=== PATIENT | male | born 1975 | race Caucasian/White ===

== ENCOUNTER 2024-10-20 18:00 | Inpatient (IN) | payer BC, SELFPAY ==
[2024-10-20] VITALS (32 sets, daily range): BP systolic 133–184; BP diastolic 79–162; PULSE 121–143; RESP 13–31; TEMP 36.7–37.9; O2SAT 93–99; BMI 51.3
--- NOTE | ~2024-10-20 | CT_ITS ---
CT soft tissue neck w con Ordering provider: Marito Odell MD History: 49 years Male with . sore throat . Comparison: None. Technique: CT soft tissues neck was performed with contrast. . Automated exposure control and iterat hardy reconstruction technique were employed. The dose-length product was 675.00 mGy-cm. 75 mL Omnipaqu e 350 was given IV. Findings: LOWER HEAD: The visualized brain parenchyma, optic globes/orbits and mastoids are normal. Bilateral maxillary sinus disease. Otherwise, The visualized paranasal sinuses are well aerated. SALIVARY GLANDS: Normal. THYROID: Normal. SUPRAHYOID DEEP SPACES: Parapharyngeal lymph nodes are seen with the largest on the right side measur es 1.3 cm and on the left 1.6 cm. Small lymph nodes are seen in superior triangles. CAROTID ARTERIES: Atherosclerotic changes on the left with no stenosis. JUGULAR VEINS: Normal. TONSILS: Normal. ORAL CAVITY: Partially obscured by dental amalgam but normal as visualized. PHARYNX, LARYNX AND TRACHEA: Slightly prominent epiglottis. Patent and normal. No prevertebral soft t issue swelling. Soft tissue swelling is seen inferior to the epiglottis most likely in the proximal esophagus measuri ng 2.4 cm.. Laryngoscopy/esophagoscopy is advised. SUPERFICIAL SOFT TISSUES: Normal. No lymphadenopathy or neck mass. THORACIC INLET/VISUALIZED UPPER CHEST: Normal. SKELETAL: Age appropriate degenerative changes. IMPRESSION: 1. Slightly prominent epiglottis. Inflammatory changes are possible. 2. Lymphadenopathy in the parapharyngeal areas. 3. Soft tissue swelling in the area of the proximal esophagus. Further evaluation advised. 4. No definite enhancement seen in the area of the tonsils Reviewed, dictated and finalized at location A. IMPRESSION: 1. Slightly prominent epiglottis. Inflammatory changes are possible. 2. Lymphadenopathy in the parapharyngeal areas. 3. Soft tissue swelling in the area of the proximal esophagus. Further evaluat ion advised. 4. No definite enhancement seen in the area of the tonsils
--- NOTE | ~2024-10-20 | XR_ITS ---
XR chest 1V portable Ordering provider: Natalie Cheney PA-C History: 49 years Male with . sob . Comparison: None. FINDINGS: MEDIASTINUM: The cardiac silhouette is not enlarged. LUNGS: No infiltrates, effusions or pneumothorax. OTHER: No free air under the diaphragm. Degenerative changes of the spine. IMPRESSION: No acute cardiopulmonary pathology. Reviewed, dictated and finalized at location A.
--- OUTSIDE RECORDS SUMMARY | 2024-10-20 18:03 | XMS_ITS | Continuity of Care Document ---
Author Organization [facility] Address [address] [place] [address] Phone Care Team Providers Care Motorboat Operator Name Role Phone Tessa Hector Unavailable Unavailab le Allergies, Adverse Reactions, Alerts Substance Reaction Status Criticality No Known Allergies Active No Inform ation Medications Medication Instructions Dosage Effective Dates (start - stop) Status Comments No Drug Therapy Prescribed Procedures Procedure Date POSTOP FOLLOW-UP VISIT OFFICE/OUTPATIENT VISIT EST POSTOP FOLLOW-UP VISIT OFFICE/OUTPATIENT VISIT EST POSTOP FOLLOW-UP VISIT POSTOP FOLLOW-UP VISIT RADEX KNE 3 VIEWS OFFICE/OUTPATIENT VISIT EST POSTOP FOLLOW-UP VISIT POSTOP FOLLOW-UP VISIT POSTOP FOLLOW-UP VISIT OFFICE/OUTPATIENT VISIT EST OFFICE/OUTPATIENT VISIT EST RADEX KNE 3 VIEWS OFFICE/OUTPATIENT VISIT NEW Advance Directives Directive Yes / No Effective Date File Name No Information Encounters Encounter Description Practice Location Reason(s) For Visit Diagnoses Date Provider Providers Copied on Encounter [facility], [address], [place], [address], tel:[phone] [facility] Osteoarthritis of left knee, unspecified osteoarthritis type 0 Lori Zarate. [address], [place], [place], [id number]. tel:[phone] OFFICE/OUTPA TIENT VISIT EST [facility], [address], [place], [address], [place] tel:[phone] [facility] Osteoarthritis of left knee, unspecified osteoarthritis type Fe-0 0 Boxdorfer Tessa. [address] [address], [place], [place], [id number]. tel:[phone] [facility], [address] [address], [place], [address], [place] tel:[phone] [facility] Osteoarthritis of left knee, unspecified osteoarthritis type Apr- 0 Boxdorfer Tessa. [address] [address], [place], [place], [id number]. tel:[phone] OFFICE/OUTPA TIENT VISIT EST [facility], [address], [address], [place] tel:[phone] [facility] Osteoarthritis of left knee, unspecified osteoarthritis type 0 Boxdorfer Tessa. [address], [id number]. tel:[phone] [facility], [address] [address], [place], [address], [place] tel:[phone] [facility] Osteoarthritis of right knee, unspecified osteoarthritis type 9 Boxdorfer Tessa. [address], [id number]. tel:[phone] [facility], [address], [address], [place] tel:[phone] [facility] Osteoarthritis of right knee, unspecified osteoarthritis type 0 9 Boxdorfer Tessa. [address], [id number]. tel:[phone] OFFICE/OUTPA TIENT VISIT EST [facility], [address], [address], [place] tel:[phone] [facility] Left knee pain, unspecified chronicityPrimar y osteoarthritis of left kneeOsteoarthrit is of right knee, unspecified osteoarthritis type 0 9 Boxdorfer Tessa. [address] [facility] [address] [address], [place], [place], [id number]. tel:[phone] [facility], [address], [place], [address], [place] tel:[phone] [facility] Osteoarthritis of right knee, unspecified osteoarthritis type Feb- 9 [place] [address], [place], [place], [id number]. tel:[phone] [facility], [address] [address], [place], [address], [place] tel:[phone] [facility] Osteoarthritis of right knee, unspecified osteoarthritis type 8 Sigmund Ed. [address], [place], [place], [id number]. tel:[phone] [facility], [address] [address], [place], [address], [place] tel:[phone] [facility] Osteoarthritis of right knee, unspecified osteoarthritis type 0 8 Boxdor[address] Tessa. [address], [place], [place], [address]. tel:[phone] [facility], [address] [address], [place], [address], [place] tel:[phone] [facility] Osteoarthritis of right knee, unspecified osteoarthritis type 8 Sigmund Ed. [address], [place], [place], [address]. tel:[phone] OFFICE/OUTPA TIENT VISIT EST [facility], [address], [place], [address], [place] tel:[phone] [facility] Internal derangement of right kneeOsteoarthrit is of right knee, unspecified osteoarthritis type 8 Sigmund [address]. [address], [place], [place], [id number]. tel:[phone] OFFICE/OUTPA TIENT VISIT EST [facility], [address], [place], [address], [place] tel:[phone] [facility] Internal derangement of right knee 8 Louisa Ward. [address], [place], [place], [address]. tel:[phone] OFFICE/OUTPA TIENT VISIT NEW [facility], [address], [place], [address], [place] tel:[phone] [facility] Right knee pain, unspecified chronicityBody mass index (BMI) 40.0-44.9, adultOsteoarthri tis of right knee, unspecified osteoarthritis type 8 Rocklexielori Zarate. [address] [facility] [address], [place], [place], [address]. tel:[phone] Family History Family Member Type Diagnosis Age At Onset aunt Problem (finding) Heart disease mom Problem (finding) Cancer, liver pancreati c dad & mom Problem (finding) hypertension Payers Payer name Insurance type Covered libertarian ID Authoriza tikimberly(s) Blue Access PPO E2 OT [id number] Social History Type Description Quantity Date Captured Comments Alcohol Use Details No Caffeine Use Details >6 cups per day 0 Tobacco Use Status Never smoked tobacco 2019 Smoking Status Never smoker Sex Male Chief Complaint And Reason For Visit No Information Reason For Referral Reason For Referral No Information Plan Of Treatment Date Type Action Status Referral Ordered: INJECTION LT knee ordered Referral Ordered: RADEX KNE 3 VIEWS LT ordered Referral Ordered: INJECTION RT knee ordered Referral Ordered: MRI ANY JT LXTR C-MATRL RT knee Appointment date/timeframe: 09/20/2017 ordered Referral Ordered: RADEX KNE 3 VIEWS RT knee ordered History Of Present Illness Encounter Date Complaint History Of Prese nt Illness No Information Functional Status Date Functional Assessmen t No Information Medications Administered Medication Instructions Dosage Effective Dates (start - stop) Status Comments No Drug Therapy Prescribed Instructions Date Instruction Additional Infor amalia Home exercise program. Related t o Osteoarthritis of left knee, unspecified osteoarthritis type Apply moist heat or cold 20 min per hour. Related to Osteoarthritis of left knee, unspecified osteoarthritis type Home exercise program. Related t o Osteoarthritis of right knee, unspecified osteoarthritis type Apply moist heat or cold 20 min per hour. Related to Osteoarthritis of right knee, unspecified osteoarthritis type Home exercise program. Related t o Osteoarthritis of right knee, unspecified osteoarthritis type Weight loss reduces stress on joints. Related to Osteoarthritis of right knee, unspecified osteoarthritis type Rest, ice and elevate. Related t o Internal derangement of right knee Discussed treatment options Rela cristian to Internal derangement of right knee Weight loss reduces stress on joints. Related to Osteoarthritis of right knee, unspecified osteoarthritis type Home exercise program. Related t o Right knee pain, unspecified chronicity Giving encouragement to exercise Related to Body mass index (BMI) 40.0-44.9, adult Take medication as directed. Rel ated to Right knee pain, unspecified chronicity Home exercise program. Related t o Osteoarthritis of right knee, unspecified osteoarthritis type Assessments Type Assessment Date assessment Osteoarthritis of left knee, uns pecified osteoarthritis type Patient Care Teams Name Effective Dates (start - stop) Status Members No Information
--- OUTSIDE RECORDS SUMMARY | 2024-10-20 18:03 | XMS_ITS | Clinical Summary ---
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 Gender Identity Not on file Sexual Orientation Not on file Obstetrics History Plan of Treatment Health Maintenance Due Date Last Done Comments Colon Cancer Screening-Colonoscopy 1976 Depression Screening 1976 Hepatitis C Screening 1976 DTaP/Tdap/Td Vaccine (1 - Tdap) 09/25/1987 Hepatitis B Screening 1994 Regular Well Visit/Exam 18-64 1994 Covid-19 Vaccine (2023-2 5 season) 2023 11/15/2021, 08/11/2020, 07/21/2020 Influenza Vaccine (#1) 2024 Pneumococcal vaccine <65 Aged Out No longer eligible based on patient's age to complete this topic Insurance [facility] Care Teams Assembly Line Upholsterer Relationship Specialty Start Date End Date No, Physician PCP - General 10/15/23
--- OUTSIDE RECORDS SUMMARY | 2024-10-20 18:03 | XMS_ITS | Referral Summary ---
Author Organization [facility] Address [address] [place] [id number] Care Team Providers Care Ferruler Name Role Phone No, Physician Primary Care Provider [phone] Allergies No known active allergies Medications No known medications Active Problems No known active problems Social History Tobacco Use Types Packs/Day Years Used Date Smoking Tobacco: Never Assessed Sex and Gender Information Value Date Recorded Sex Assigned at Not on file Legal Sex Male 3:32 AM KENNEL HAND Gender Identity Not on file Sexual Orientation Not on file Plan of Treatment Not on file Insurance [facility] Care Teams Ferruler Relationship Specialty Start Date End Date No, Physician PCP - General 10/15/23
--- OUTSIDE RECORDS SUMMARY | 2024-10-20 18:03 | XMS_ITS | Encounter Summary ---
Author Organization [facility] Address [address] [place] [address] Care Team Providers Care Dyer Helper Name Role Phone Sharon Torres MD Primary Care Provider + Encounter Details Date Type Department Care Team (Late Contact Info) Description 03/09/2024 [facility] [employer] Message Enc [address] [address] [place], [facility] Provider sleep study Social History Tobacco Use Types Packs/Day Years Used Date Smoking Tobacco: Former Cigarettes 0.5 5 Q uit: 09/13/2009 Pipe Passive Smoke Exposure: Past Smokeless Tobacco: Former Chew Quit: 2000 Alcohol Use Standard Drinks/Week Comments Yes 8.3 (1 standard drink = 0.6 oz p ure alcohol) occ PHQ-2 Answer Date Recorded Patient Health Questionnaire-2 Score 0 01/21/2024 Sex and Gender Information Value Date Recorded Sex Assigned at Not on file Legal Sex Male 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 Gender Identity Not on file Sexual Orientation Not on file Occupation Industry 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 [employer] Not on file Not on file Not on file documented as of this encounter Plan of Treatment Upcoming Encounters Date Type Department Care Team (Late Contact Info) Description 10/21/2024 9:00 AM CDT Office Visit [facility] [address] [place] [address] [place] [phone] Sveta Servin NP [address] [place] [address] 02/04/2025 9:30 AM CDT Office Visit [facility] [place] [address] [place] [phone] Sharon Torres MD [address] [place] [phone] documented as of this encounter Visit Diagnoses Not on filedocumented in this encounter Care Teams Dyer Helper Relationship Specialty Start Date End Date Sharon Torres MD [address] [facility] [address] [place] [phone] PCP - General FAMILY PRACTICE 01/21/24 documented as of this encounter
--- OUTSIDE RECORDS SUMMARY | 2024-10-20 18:03 | XMS_ITS | Clinical Summary ---
Author Organization [facility] Address [address] [place] [address] Care Team Providers Care Recruiting Consultant Name Role Phone Unavailable Primary Care Provider Unavailabl e Allergies No known active allergies Medications hydroCHLOROthia zide 25 mg tablet Take 25 mg by mouth daily. Active metoprolol succinate (TOPROL XL) 25 mg Extended Release 24 hour tablet Take 25 mg by mouth daily. Active lisinopriL (PRINIVIL) 40 mg tablet Take 40 mg by mouth daily. Active metFORMIN (GLUCOPHAGE XR) 500 mg Extended Release 24 hour tablet Take 3 Tablets (1,500 mg) by mouth daily before supper. 270 Tablet 5 Active naltrexone (DEPADE) 50 mg tablet SI/4 tab po qd for one week then increase to 1/2 tab po qd for one week then 1/2 tab po bid if tolerating 30 Tablet 5 Active Active Problems No known active problems Encounters Date Type Department Care Team Description 2024 10:00 AM CDT Office Visit [facility] at the [facility] [address] [place] [address] Morbid obesity with BMI of 50.0-59.9, adult (CMS/HCC) (Primary Dx) 09/23/2024 Orders Only [facility] - [address] [address] Nikkie Mckeon A Class 3 severe obesity due to excess calories with serious comorbidity and body mass index (BMI) of 50.0 to 59.9 in adult; Medication monitoring encounter; Essential hypertension 09/22/2024 8:00 AM CDT Video Visit [facility] - [address], [address] [address] Genny Agosto MD Essential hypertension (Primary Dx); Class 3 obesity; Vitamin D deficiency; BMI 45.0-49.9, adult ([facility]/HCC); Medication management 09/03/2024 External Device Data [facility] ABSTRACTION Provider, Abstract 09/02/2024 External Device Data [facility] AB[facility]CTION Provider, Abstract 09/02/2024 External Device Data [facility]STRACTION Provider, Abstract 08/24/2024 8:00 AM CDT Video Visit [facility] - [address], [address] [address] Genny Agosto MD Essential hypertension (Primary Dx); Class 3 obesity; BMI 50.0-59.9, adult ([facility]); Insulin resistance; Vitamin D deficiency; Elevated ALT measurement 08/19/2024 Abstract [facility] at the [facility] Medicine [address] [place] [address] RD [address] [place] [address] Akosua Segura, RN 08/14/2024 Abstract [facility] Surgery at the [facility] [address] [place] [address] Akosua Segura, RN 08/13/2024 10:00 AM CDT Office Visit [facility] General Surgery at the [facility] Medicine [address] [place] [address] RD [address] [place] [address] Aurelia Pena, ALEXANDER Morbid obesity with BMI of 50.0-59.9, adult ([facility]) (Primary Dx) 07/28/2024 External Device Data [facility] ABSTRACTION Provider, Abstract 07/28/2024 External Device Data [facility] ABSTRACTION Provider, Abstract 07/28/2024 External Device Data [facility] ABSTRACTION Provider, Abstract 07/27/2024 8:30 AM CDT Video Visit [facility] - [address], [address] [address] Genny Agosto MD Essential hypertension (Primary Dx); Class 3 severe obesity due to excess calories with serious comorbidity and body mass index (BMI) of 50.0 to 59.9 in adult; Medication monitoring encounter 07/23/2024 Telephone [facility] - [address], [address] [address] Genny Agosto MD Needs Appointment 07/22/2024 10:15 AM CDT Office Visit [facility] Surgery at the [facility] Medicine [address] [place] [address] [address] [place] [address] Sharon Streeter MD Morbid obesity with BMI of 50.0-59.9, adult (CMS/[facility]) (Primary Dx); Gastroesophageal reflux disease, unspecified whether esophagitis present; HTN (hypertension), benign 07/22/2024 Abstract [facility] Surgery at the [address] [place] [address] Sarita aFy RN 07/22/2024 Orders Only [facility] Surgery at the [address] [place] [address] Sarita Fay RN Morbid obesity with BMI of 50.0-59.9, adult (CMS/HCC) (Primary Dx) from Last 3 Months Family History Medical History Relation Name Comments Cancer Father Hieu siu Heart Disease Father Hieu siu Diabetes Mother Daija siu Relation Name Status Comments Father Hieu siu Alive Mother Daija siu Alive Social History Tobacco Use Types Packs/Day Years Used Date Smoking Tobacco: Former Cigarettes 0.5 10 Q uit: 08/23/2011 Pipe Tobacco Cessation:Counseling Given: Not Answered Alcohol Use Standard Drinks/Week Comments Yes 2 (1 standard drink = 0.6 oz pur e alcohol) Sex and Gender Information Value Date Recorded Sex Assigned at Not on file Legal Sex Male 10:55 PM CDT Gender Identity Not on file Sexual Orientation Not on file Last Filed Vital Signs Vital Sign Reading Time Taken Comments Blood Pressure 152/88 07/22/2024 9:47 AM CDT Pulse 81 07/22/2024 9:47 AM CDT Temperature - - Respiratory Rate - - Oxygen Saturation 95% 07/22/2024 9:47 AM CDT Inhaled Oxygen Concentration - - Weight 189.6 kg (418 lb) 2024 9:47 AM CDT Height 193 cm (6' 4) 09/22/2024 7:56 AM CDT Body Mass Index 50.88 09/22/2024 7:56 AM CDT Plan of Treatment Upcoming Encounters Date Type Department Care Team (Late st Contact Info) Description 10/22/2024 9:00 AM CDT Video Visit [facility] - [facility] [address] [facility], [address] [address] [place] [address] [place] [address] 11/05/2024 10:00 AM CDT Office Visit [facility] General Surgery at the [facility] Medicine [address] [place] [address] Aurelia Pena, RD [address] [place] [address] Health Maintenance Due Date Last Done Comments HEPATITIS B VACCINES (1 of 3 - 19+ 3-dose series) 09/13 COLORECTAL SCREENING 2021 Colorectal Cancer Screening 2021 FIT-DNA Q 3 years 2021 FIT/FOBT Q 1 year 2021 Flex Sig/CT Colonography Q 5 years 2021 INFLUENZA VACCINE (#1) 2024 Pre-Diabetes and Diabetes Screening 09/24/202709/23 DTAP/TDAP/TD VACCINES (2 - Td or Tdap) 01/20/2034 Procedures Procedure Name Priority Date/Time Associated Diagnosis Comments COMPREHENSIVE METABOLIC PANEL Routine 09/23/2024 8:04 AM CDT Essential hypertension Class 3 severe obesity due to excess calories with serious comorbidity and body mass index (BMI) of 50.0 to 59.9 in adult HEMOGLOBIN A1C Routine 09/23/2024 8:04 AM CDT Class 3 severe obesity due to excess calories with serious comorbidity and body mass index (BMI) of 50.0 to 59.9 in adult INSULIN LEVEL Routine 09/23/2024 8:04 AM CDT Class 3 severe obesity due to excess calories with serious comorbidity and body mass index (BMI) of 50.0 to 59.9 in adult VITAMIN D 25 HYDROXY Routine 09/23/2024 8:04 AM CDT Class 3 severe obesity due to excess calories with serious comorbidity and body mass index (BMI) of 50.0 to 59.9 in adult TSH REFLEXIVE Routine 09/23/2024 8:04 AM CDT Essential hypertension Class 3 severe obesity due to excess calories with serious comorbidity and body mass index (BMI) of 50.0 to 59.9 in adult CBC WITH DIFFERENTIAL Routine 09/23/2024 8:04 AM CDT Essential hypertension Class 3 severe obesity due to excess calories with serious comorbidity and body mass index (BMI) of 50.0 to 59.9 in adult VITAMIN B12 AND FOLATE Routine 8:04 AM CDT Class 3 severe obesity due to excess calories with serious comorbidity and body mass index (BMI) of 50.0 to 59.9 in adult Medication monitoring encounter VITAMIN B1 LEVEL Routine 09/23/2024 8:04 AM CDT Class 3 severe obesity due to excess calories with serious comorbidity and body mass index (BMI) of 50.0 to 59.9 in adult IRON, TIBC, AND PERCENT SATURATION Routine 09/23/2024 8:04 AM CDT Class 3 severe obesity due to excess calories with serious comorbidity and body mass index (BMI) of 50.0 to 59.9 in adult from Last 3 Months Results * COMPREHENSIVE METABOLIC PANEL (09/23/2024 8:04 AM CDT) Blood 09/23/2024 8:04 AM CDT us Genny Agosto MD CHEMISTRY ORDERABLES Final Resu lt [facility] [phone] * HEMOGLOBIN A1C (09/23/2024 8:04 AM CDT) Blood 09/23/2024 8:04 AM CDT Genny Agosto MD CHEMISTRY ORDERABLES Final Resu lt Performing Organization Address [facility] Co de Phone Number [facility] [phone] * INSULIN LEVEL (09/23/2024 8:04 AM CDT) Blood 09/23/2024 8:04 AM CDT us Genny Agosto MD CHEMISTRY ORDERABLES Final Resu lt Performing Organization Address [facility] de Phone Number [facility] [phone] * VITAMIN D 25 HYDROXY (09/23/2024 8:04 AM CDT) Blood 09/23/2024 8:04 AM CDT Genny Agosto MD CHEMISTRY ORDERABLES Final Resu lt Performing Organization Address [facility] Co de Phone Number [facility] [phone] * TSH REFLEXIVE (09/23/2024 8:04 AM CDT) Blood 09/23/2024 8:04 AM CDT Genny Agosto MD CHEMISTRY ORDERABLES Final Resu lt Performing Organization Address [facility] Co de Phone Number [facility] [phone] * CBC WITH DIFFERENTIAL (09/23/2024 8:04 AM CDT) Blood 09/23/2024 8:04 AM CDT Genny Agosto MD HEMATOLOGY ORDERABLES Final Res ult Performing Organization Address [facility] Co de Phone Number [facility] [phone] * VITAMIN B12 AND FOLATE (09/23/2024 8:04 AM CDT) Blood 09/23/2024 8:04 AM CDT us Genny Agosto MD CHEMISTRY ORDERABLES Final Resu lt Performing Organization Address [facility]/ZIP Co de Phone Number [facility] [phone] * VITAMIN B1 LEVEL (09/23/2024 8:04 AM CDT) Blood 09/23/2024 8:04 AM CDT us Genny Agosto MD CHEMISTRY ORDERABLES Final Resu lt Performing Organization Address [facility] Co de Phone Number [facility] [phone] * IRON, TIBC, AND PERCENT SATURATION (09/23/2024 8:04 AM CDT) Blood 09/23/2024 8:04 AM CDT us Genny Agosto MD CHEMISTRY ORDERABLES Final Resu lt Performing Organization Address [facility] Co de Phone Number [facility] [phone] from Last 3 Months Insurance BS BLUE ACCESS/TRUE BLUE PPO
--- OUTSIDE RECORDS SUMMARY | 2024-10-20 18:03 | XMS_ITS | Clinical Summary ---
Author Organization [facility] Address [address] [place] [address] Care Team Providers Care Yoga Instructor Name Role Phone Sharon Torres MD Primary Care Provider + Allergies No known active allergies Medications lisinopril (PRINIVIL) 40 MG tabletIndication s:Essential hypertension Take 20 mg for two days, then take 40 mg daily. 90 tablet 3 4 Active Additional Information Patient taking differently: 40 mg Oral Daily, (No instructions reported), Reported on 02/05/2024 hydroCHLOROthiaz minda (HYDRODIURIL) 25 MG tabletIndication s:Essential hypertension Take 1 tablet (25 mg total) by mouth every morning. 90 tablet 3 4 Active tirzepatide (ZEPBOUND) 2.5 MG/0.5ML injectionIndicat ions:Weight Loss Inject 2.5 mg into the skin once a week. Indications: Weight Loss 6 mL 4 Active metoprolol succinate ER (TOPROL-XL) 25 MG 24 hr tabletIndication s:Essential hypertension Take 1 tablet (25 mg total) by mouth daily. 90 tablet 3 4 025 Active Active Problems Problem Noted Date Diagnosed Date Lymphedema 01/21/2024 Morbid obesity 01/21/2024 Overview (02/05/2024): Patient request the option of GLP-1. No history of pancreatitis no family history of thyroid cancers. Assessment & Plan (02/05/2024 9:31 AM CDT): Discussed risks and benefits of GLP-1. He is interested in trying Zepbound. He is open to paying [id number] if needed. Prescription provided and recommended 1 to 2-month follow-up if he begins taking medication. Assessment & Plan (01/21/2024 9:16 AM CDT): Discussed lifestyle changes. Essential hypertension 09/17/1994 Overview (02/05/2024): Started lisinopril 20 mg and increase to 40 mg. Also added hydrochlorothiazide. Reports blood pressure readings at home are 140s-150s systolic. Notes edema is improved. Assessment & Plan (02/05/2024 9:30 AM CDT): Not yet controlled. Continue lisinopril 40 mg daily and hydrochlorothiazide. Add metoprolol 25 mg daily. Request nurse visit in 2 weeks to confirm readings are at goal or adjust based on pulse. Assessment & Plan (01/21/2024 9:16 AM CDT): Not controlled. Chronic. Will initiate lisinopril 20 mg daily x 2 days then increase to 40 mg daily. Recommend after 1 week adding hydrochlorothiazide 25 mg daily. Recommend he monitor blood pressures at home regularly and return in 2 weeks for discussion on blood pressure management. Immunizations Immunization Administration Dates Next Due Tdap (Adacel) 01/21/2024 Family History Medical History Relation Comments No Known Problems Brother 1 No Known Problems Brother 2 Cancer Father Salavitory gland cancer Hypertension Father Cancer Mother Pancreatic cance r Diabetes Mother No Known Problems Sister 1 No Known Problems Sister 2 No Known Problems Sister 3 No Known Problems Sister 4 Relation Status Comments Brother 1 Alive Brother 2 Alive Father Mother Sister 1 Alive Sister 2 Alive Sister 3 Alive Sister 4 Alive Social History Tobacco Use Types Packs/Day Years Used Date Smoking Tobacco: Former Cigarettes 0.5 5 Q uit: 09/13/2009 Pipe Passive Smoke Exposure: Past Smokeless Tobacco: Former Chew Quit: 2000 Tobacco Cessation:Counseling Given: No Alcohol Use Standard Drinks/Week Comments Yes 8.3 (1 standard drink = 0.6 oz p ure alcohol) occ PHQ-2 Answer Date Recorded Patient Health Questionnaire-2 Score 0 01/21/2024 Sex and Gender Information Value Date Recorded Sex Assigned at Not on file Legal Sex Male 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 Gender Identity Not on file Sexual Orientation Not on file Occupation Industry 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 [employer] Not on file Not on file Not on file Last Filed Vital Signs Vital Sign Reading Time Taken Comments Blood Pressure 128/82 02/19/2024 8:54 AM STRATEGIC PARTNER DEVELOPMENT MANAGER Pulse 72 02/19/2024 8:54 AM STRATEGIC PARTNER DEVELOPMENT MANAGER Temperature 36.7 C (98.1 F) 02/19/2024 8:54 AM STRATEGIC PARTNER DEVELOPMENT MANAGER Respiratory Rate 20 02/19/2024 8:54 AM STRATEGIC PARTNER DEVELOPMENT MANAGER Oxygen Saturation 98% 02/19/2024 8:54 AM STRATEGIC PARTNER DEVELOPMENT MANAGER Inhaled Oxygen Concentration - - Weight 190.1 kg (419 lb) 02/05/2024 8:59 AM CDT Height 191.8 cm (6' 3.5) 02/05/2024 8:59 AM CDT Body Mass Index 51.68 02/05/2024 8:59 AM CDT Plan of Treatment Upcoming Encounters Date Type Department Care Team (Late st Contact Info) Description 10/21/2024 9:00 AM CDT Office Visit [facility] [address] [place] [address] Sveta Servin NP [address] [place] [address] 02/04/2025 9:30 AM CDT Office Visit [facility] [address] [place] [address] Sharon Torres MD [address] [place] [address] Health Maintenance Due Date Last Done Comments Hepatitis B Vaccines (1 of 3 - 19+ 3-dose series) 09/25/1995 COVID-19 Vaccine (2023-2 5 season) 2023 11/15/2021, 08/11/2020, 07/21/2020 PHQ-2 (Physician Seibert) 04/15/2024 01/21/2024 Annual Physical 01/20/2025 01/21/2024 Colorectal Cancer Screening FIT-DNA (3 Years) 01/27/2027 01/28/2024, 01/28/2024 DTaP, Tdap and Td Vaccines ( 2 - Td or Tdap) 01/20/2034 01/21/2024 Hepatitis C Completed 01/21/2024 Meningococcal B Vaccine Aged Out No l onger eligible based on patient's age to complete this topic Meningococcal Vaccine Aged Out No landen nano eligible based on patient's age to complete this topic Pneumococcal Vaccine: Pediatrics (0 to 5 Years) and At-Risk Patients (6 to 49 Years) Aged Out No longer eligible b ased on patient's age to complete this topic RSV Immunizations Under 20 Months Aged Out No longer eligible b ased on patient's age to complete this topic Procedures Procedure Name Priority Date/Time Associated Diagnosis Comments COLOGUARD (EXACT SCIENCE) Routine 01/28/2024 8:45 AM CDT Colon cancer screening HEPATITIS C ANTIBODY W/RFX TO HCV RNA Routine 01/21/2024 9:20 AM CDT Routine general medical examination at a health care facility from Last 3 Months or Most Recently Relevant to Health Maintenance Results * COLOGUARD (EXACT SCIENCE) (01/28/2024 8:45 AM CDT) COLOGUARD RESULT Negative Negative [facility] (CLIA #:[id number]) Comment: NEGATIVE TEST RESULT. A negative Cologuard result indicates a low likelihood that a colorectal cancer (CRC) or advanced adenoma (adenomatous polyps with more advanced pre-malignant features) is present. The chance that a person with a negative Cologuard test has a colorectal cancer is less than 1 in 1500 (negative predictive value >99.9%) or has an advanced adenoma is less than 5.3% (negative predictive value 94.7%). These data are based on a prospective cross-sectional study of 10,000 individuals at average risk for colorectal cancer who were screened with both Cologuard and colonoscopy. (Megan Morel al, N Engl J Med 2014;370(14):3481-7448) The normal value (reference range) for this assay is negative. COLOGUARD RE-SCREENING RECOMMENDATION: Periodic colorectal cancer screening is an important part of preventive healthcare for asymptomatic individuals at average risk for colorectal cancer. Following a negative Cologuard result, the [place] Cancer Society and U.S. Multi-Society Task Force screening guidelines recommend a Cologuard re-screening interval of 3 years. References: [place] Cancer Society Guideline for Colorectal Cancer Screening: https://www.cancer.org/cancer/oiapp-ykltkx-unxzud/uhtbprchz-wsqksfrxb-khlmlff/ac s-rec ommendations.html.; Wang DK, Ifeanyi CR, Moe CarmonaK, Colorectal Cancer Screening: Recommendations for Physicians and Patients from the U.S. Multi-Society Task Force on Colorectal Cancer Screening , Am J Gastroenterology 2017; 112:7370-7132. TEST DESCRIPTION: Composite algorithmic analysis of stool DNA-biomarkers with hemoglobin immunoassay. Quantitative values of individual biomarkers are not reportable and are not associated with individual biomarker result reference ranges. Cologuard is intended for colorectal cancer screening of adults of either sex, 45 years or older, who are at average-risk for colorectal cancer (CRC). Cologuard has been approved for use by the U.S. FDA. The performance of Cologuard was established in a cross sectional study of average-risk adults aged 50-84. Cologuard performance in patients ages 45 to 49 years was estimated by sub-group analysis of near-age groups. Colonoscopies performed for a positive result may find as the most clinically significant lesion: colorectal cancer [4.0%], advanced adenoma (including sessile serrated polyps greater than or equal to 1cm diameter) [20%] or non- advanced adenoma [31%]; or no colorectal neoplasia [45%]. These estimates are derived from a prospective cross-sectional screening study of 10,000 individuals at average risk for colorectal cancer who were screened with both Cologuard and colonoscopy. (Megan Morel al, N Engl J Med 2014;370(14):5720-7817.) Cologuard may produce a false negative or false positive result (no colorectal cancer or precancerous polyp present at colonoscopy follow up). A negative Cologuard test result does not guarantee the absence of CRC or advanced adenoma (pre-cancer). The current Cologuard screening interval is every 3 years. ([place] Cancer Society and U.S. Multi-Society Task Force). Cologuard performance data in a 10,000 patient pivotal study using colonoscopy as the reference method can be accessed at the following location: www.[employer]be[employer].com/results. Additional description of the Cologuard test process, warnings and precautions can be found at www.cologuard.com. STOOL STOOL SPECIMEN / Unknown 01/28/2024 8:45 AM CDT 01/29/2024 9:53 AM CDT us Sharon Torres MD BODY FLUIDS AND STOOLS O RDERABLES Final Result Performing Organization Address [facility] de Phone Number [employer] ([employer] [address]) [address] [place] [address], [employer] (CLIA #:[id number]) [address] [place] [address] * HEPATITIS C ANTIBODY W/RFX TO HCV RNA (01/21/2024 9:20 AM CDT) HEPATITIS C AB Non Reactive Non Reacti [facility] INTERPRETATION Comment [facility] 1 Comment: Not infected with HCV unless early or acute infection is suspected (which may be delayed in an immunocompromised individual), or other evidence exists to indicate HCV infection. 01/21/2024 9:20 AM CDT 01/21/2024 Narrative [facility] - 01/22/2024 5:07 AM CDT Performed at: 01 - [facility] [address] [id number] Tobacco Sweeper: Errol Singleton PhD, Phone: [phone] us Sharon Torres MD LABORATORY Final Re sult Performing Organization Address [facility] Co de Phone Number [facility] [address] [place] [address] [facility] 1 from Last 3 Months or Most Recently Relevant to Health Maintenance Insurance [facility] Care Teams Yoga Instructor Relationship Specialty Start Date End Date Sharon Torres MD [address] [place] [phone] PCP - General FAMILY PRACTICE 01/21/24
--- OUTSIDE RECORDS SUMMARY | 2024-10-20 18:03 | XMS_ITS | Encounter Summary ---
Author Organization [facility] Address [address] [place] [address] Care Team Providers Care Supervisor Propellant Charge Loading Name Role Phone Unavailable Primary Care Provider Unavailabl e Encounter Details Date Type Department Care Team (Late st Contact Info) Description 07/07/2024 Chart Note [facility] Bariat[facility] and General Surgery at the [facility] [address] [place] [address] Sharon Streeter MD [address] [place] [address] Social History Tobacco Use Types Packs/Day Years Used Date Smoking Tobacco: Never Assessed Sex and Gender Information Value Date Recorded Sex Assigned at Not on file Legal Sex Male 10:55 PM CDT Gender Identity Not on file Sexual Orientation Not on file documented as of this encounter Plan of Treatment Upcoming Encounters Date Type Department Care Team (Late st Contact Info) Description 10/22/2024 9:00 AM CDT Video Visit [facility] - [address] [phone] [place] [address] [place] [phone] 11/05/2024 10:00 AM CDT Office Visit [facility] Bariatrics and General Surgery at the [facility] [address] [place] [address] [place] [address] documented as of this encounter Visit Diagnoses Not on filedocumented in this encounter
--- NOTE | 2024-10-20 18:04 | ED_ITS ---
HPI - URI/Sore Throat General Chief Complaint: Shortness of Breath/Dyspnea <Natalie Cheney PA-C - Last Filed: 10/22/24 17:26> Stated Complaint: SOB <Natalie Cheney PA-C - Last Filed: 10/22/24 17:26> Time Seen by Provider: 10/20/24 18:04 <Natalie Cheney PA-C - Last Filed: 10/22/24 17:26> Focused HPI: This is a 49 year old male that presents to the ER for sore throat. Ongoing over the last couple of days. Reports tonight he felt like his swelling was getting worse, he is feeling short of breath, which prompted him to be seen. Reports difficulty swallowing. GENERAL: Uncomfortable, well-nourished, and in no acute distress. HEAD: Normocephalic, atraumatic. CHEST: Clear to auscultation. ?No respiratory distress. HEART: Tachycardic, regular rhythm.? NEURO: ?Alert and oriented x3. Patient screened in triage and initial orders placed.? ?Additional care and disposition to be based upon?diagnostic testing and treatment. <Natalie Cheney PA-C - Last Filed: 10/22/24 17:26> Focused HPI: This is a 49 year old male that presents to the ER for sore throat. Ongoing over the last couple of days. Reports today he felt like his swelling was getting worse, he is feeling short of breath, which prompted him to be seen. Reports difficulty swallowing. GENERAL: Uncomfortable, well-nourished, and in no acute distress. HEAD: Normocephalic, atraumatic. CHEST: Clear to auscultation. ?No respiratory distress. HEART: Tachycardic, regular rhythm.? NEURO: ?Alert and oriented x3. Patient screened in triage and initial orders placed.? ?Additional care and disposition to be based upon?diagnostic testing and treatment. <Marito Odell MD - Last Filed: 10/20/24 22:45> History of Present Illness HPI Narrative: I agree with the above HPI. Patient reports after being treated with the steroids he does feel like his symptoms have begun to improve. <Marito Odell MD - Last Filed: 10/20/24 22:45> Related Data Home Medications: Home Medications ?Medication ?Instructions ?Recorded ?Confirmed ?Last Taken ?Type hydrochlorothiazide 25 mg tablet 25 mg PO DAILY 10/21/24 10/21/24 10/20/24 History lisinopril 40 mg tablet 40 mg PO HS 10/21/24 10/21/24 10/19/24 History metformin 500 mg tablet,extended 1,500 mg PO 1200 10/21/24 10/21/24 10/20/24 History release 24 hr metoprolol succinate 25 mg 25 mg PO HS 10/21/24 10/21/24 10/19/24 History tablet,extended release 24 hr <Natalie Cheney PA-C - Last Filed: 10/22/24 17:26> Allergies/Adverse Reactions: Allergies Allergy/AdvReac Type Severity Reaction Status Date / Time No Known Allergies Allergy Mild Verified 10/21/24 00:16 <Natalie Cheney PA-C - Last Filed: 10/22/24 17:26> Review of Systems 2 Review of Systems: All systems reviewed & are unremarkable except as noted in HPI and below <Marito Odell MD - Last Filed: 10/20/24 22:45> [facility] Past Medical History Medical History: Medical History (Updated 10/21/24 @ 09:09 by Karla Bean DO) Morbid obesity with BMI of 50.0-59.9, adult Essential hypertension <Natalie Cheney PA-C - Last Filed: 10/22/24 17:26> Surgical History Surgical History: Surgical History No history of previous surgery <Natalie Cheney PA-C - Last Filed: 10/22/24 17:26> Family History Family History: Family History (Updated 10/21/24 @ 08:45 by Karla Bean DO) Mother Pancreatic cancer, Onset Age: 56 Father Salivary gland cancer Dementia Age older than 80 years Grandparent Alcohol abuse Grandparent Cerebrovascular accident <Natalie Cheney PA-C - Last Filed: 10/22/24 17:26> Social History Social History: Social History (Updated 10/21/24 @ 08:47 by Karla J. Hopen, DO) Social History: The patient is single and lives with a roommate. He used to smoke a pack of cigarettes per day for about 5 years. He reports the drinking alcohol about once every other month. Denies illicit substance use. He works for [employer]. Code status: Full code Surrogate decision maker: Xiomara Tomlinson (Sister) Smoking packs per day: 1 Smoking cigarettes per day: 20.0 Years smoked: 5 Smoking pack-years: 5.00 Smoking status: Former smoker Tobacco type: cigarettes Alcohol intake: current Drinks per week: 1 Substance use: never Do You Feel Safe in your Home?: Yes Lack of Transportation: No Lack of Food: Never True Current Housing: I Have Housing Concerned About Future Housing: No Difficulty Paying Gas/Electric Bills: No Difficulty Paying for Meds: No Currently Unemployed: No Education: Associate Degree Difficulty w/ Childcare or Family Care: No Spiritual care concerns: No <Natalie Cheney PA-C - Last Filed: 10/22/24 17:26> Exam 2 Narrative: APPEARANCE: Uncomfortable appearing HEAD: normocephalic, atraumatic. EYES: PERRLA/EOMI, conjunctivae clear. NOSE: Normal no drainage EARS:TMS clear with good light reflex. THROAT: Pharynx clear, no exudate. No stridor NECK: No palpated abscess or mass, patient does have tenderness to palpation RESPIRATORY: Airway patent, respirations nonlabored. Clear to auscultation bilaterally, no rales, rhonchi, wheezing. CARDIOVASCULAR: Tachycardia ABDOMINAL: Soft, nontender, nondistended, normal bowel sounds MUSCULOSKELETAL: Moves all extremities. Strength/ROM intact, No edema, No calf tenderness. NEURO: Alert. Cranial nerves II through XII intact. Good gait. Good coordination SKIN: Warm, dry. Normal Color <Marito Odell MD - Last Filed: 10/20/24 22:45> Course Vital Signs Vital signs: Vital Signs Temperature 98.0 F 10/20/24 18:06 Pulse Rate 121 H 10/20/24 18:06 Respiratory Rate 18 10/20/24 18:06 Blood Pressure 173/92 H 10/20/24 18:06 Pulse Oximetry 99 10/20/24 18:06 Oxygen Delivery Room Air 10/20/24 18:06 Temperature 98.2 F 10/22/24 16:17 Pulse Rate 82 10/22/24 16:17 Respiratory Rate 17 10/22/24 16:17 Blood Pressure 140/83 10/22/24 16:17 Pulse Oximetry 94 10/22/24 16:17 Oxygen Delivery Room Air 10/22/24 11:56 Fraction of Inspired Oxygen 21 10/21/24 20:04 <Natalie Cheney PA-C - Last Filed: 10/22/24 17:26> Vital Signs Temperature 98.0 F 10/20/24 18:06 Pulse Rate 121 H 10/20/24 18:06 Respiratory Rate 18 10/20/24 18:06 Blood Pressure 173/92 H 10/20/24 18:06 Pulse Oximetry 99 10/20/24 18:06 Oxygen Delivery Room Air 10/20/24 18:06 Temperature 98.2 F 10/22/24 16:17 Pulse Rate 82 10/22/24 16:17 Respiratory Rate 17 10/22/24 16:17 Blood Pressure 140/83 10/22/24 16:17 Pulse Oximetry 94 10/22/24 16:17 Oxygen Delivery Room Air 10/22/24 11:56 Fraction of Inspired Oxygen 21 10/21/24 20:04 <Marito Odell MD - Last Filed: 10/20/24 22:45> MDM - URI/Sore Throat MDM Narrative Medical decision making narrative: 41-year-old male presents to the emergency department for evaluation for sore throat. Patient is currently afebrile but does have a leukocytosis of 19.9 hemoglobin of 15.1. Patient has no significant abnormalities on his CMP patient was negative for influenza RSV COVID and for strep. Patient does have a change in his voice and feels that he has phlegm in his throat. Patient states this being treated with the IV Decadron on arrival that he does feel improved. He feels his symptoms are improving not worsening. CT scan was concerning for a slightly prominent epiglottitis. Patient has no stridor and is not hypoxic. He was tachycardic upon arrival to the emergency department but did improve with a L of IV fluids. Additional fluids are being ordered. Patient has blood cultures pending and patient was started on Unasyn. I did discuss the case with Dr. Lombardo, he is not officially consulted but states that if there is a clinical worsening he is willing to be consulted. He did recommend continuing antibiotics and steroids and had no further recommendations. Discussed the case with the community service organization director patient will be admitted to the ICU at least overnight. On re-evaluation patient still continues to deny worsening symptoms and is not hypoxic. I discussed the case with the hospitalist patient was accepted for admission. <Natalie Cheney PA-C - Last Filed: 10/22/24 17:26> 41-year-old male presents to the emergency department for evaluation for sore throat. Patient is currently afebrile but does have a leukocytosis of 19.9 hemoglobin of 15.1. Patient has no significant abnormalities on his CMP patient was negative for influenza RSV COVID and for strep. Patient does have a change in his voice and feels that he has phlegm in his throat. Patient states this being treated with the IV Decadron on arrival that he does feel improved. He feels his symptoms are is improving not worsening. CT scan was concerning for a slightly prominent epiglottitis. Patient has no stridor and is not hypoxic. He was tachycardic upon arrival to the emergency department but did improve with a L of IV fluids. Additional fluids are being ordered. Patient has blood cultures pending and patient was started on Unasyn. I did discuss the case with Dr. Lombardo, he is not officially consulted but states that if there is a clinical worsening he is willing to be consulted. He did recommend continuing antibiotics and steroids and had no further recommendations. Discussed the case with the community service organization director patient will be admitted to the ICU at least overnight. On re-evaluation patient still continues denies worsening symptoms and is not hypoxic. I discussed the case with the hospitalist patient was accepted for admission. <Marito Odell MD - Last Filed: 10/20/24 22:45> Differential Diagnosis Differential diagnosis: Likely upper respiratory infection, croup, viral infection and pharyngitis <Mariot Odell MD - Last Filed: 10/20/24 22:45> Lab Data Attestation: I reviewed the patient's lab results. <Marito Odell MD - Last Filed: 10/20/24 22:45> Result diagrams: 10/22/24 04:22 10/22/24 04:22 <Natalie Cheney PA-C - Last Filed: 10/22/24 17:26> Labs: Lab Results 10/20/24 10/20/24 10/20/24 Range/Units 18:31 18:51 18:59 WBC 19.9 H (4.5-10.0) K/mm3 RBC 4.98 (4.6-6.20) M/mm3 Hgb 15.1 (14.0-18.0) g/dL Hct 45.2 (42.0-52.0) % MCV 90.8 (80-100) fl MCH 30.3 (26-34) pg MCHC 33.4 (32-36) g/dl RDW 12.7 (11.5-14.5) % Plt Count 239 (150-375) k/mm3 MPV 10.2 (7.4-10.4) fl Immature Gran % (Auto) 0.9 H (0-0.5) % Neut % (Auto) 79.0 H (45.5-73.1) % Lymph % (Auto) 12.8 L (18.3-44.2) % [place] % (Auto) 6.8 (2.6-8.5) % Eos % (Auto) 0.3 (0-4.4) % Baso % (Auto) 0.2 (0.2-1.2) % Lymph # (Auto) 2.55 (0.9-3.2) K/mm3 [place] # (Auto) 1.4 H (0.1-0.6) K/mm3 Eos # (Auto) 0.1 (0-0.3) K/mm3 Baso # (Auto) 0.0 (0.0-0.1) K/mm3 Abs Immat Gran (auto) 0.17 H (0.00-0.031) K/mm3 Absolute Neuts (auto) 15.7 H (1.3-6.7) K/mm3 Absolute Nucleated RBC 0.000 (0.0-0.012) K/mm3 Nucleated RBC % 0.0 (0.0-0.2) % Sodium 140 (137-145) mmol/L Potassium 3.8 (3.4-5.0) mmol/L Chloride 106 (98-107) mmol/L Carbon Dioxide 23 (22-30) mmol/L Anion Gap 11 (4-12) mmol/L BUN 22 H (9-20) mg/dL Creatinine 0.90 (0.7-1.3) mg/dL Estim Creat Clear Calc 156 ml/min Estimated GFR > 60 (59 - ) Glucose 131 H (65-110) mg/dL POC Capillary Glucose (65-105) mg/dl Calcium 9.4 (8.4-10.2) mg/dL Total Bilirubin 0.3 (0.2-1.3) mg/dL AST 43 (17-59) U/L ALT 60 H (6-50) U/L Alkaline Phosphatase 55 (38-126) U/L Total Protein 7.7 (6.3-8.2) g/dL Albumin 4.3 (3.5-5.1) g/dL Procalcitonin ng/mL Nasal MRSA (PCR) (NOT DETECTE) Influenza A (RT-PCR) Negative (Negative) Influenza B (RT-PCR) Negative (Negative) RSV (RT-PCR) Negative (Negative) SARS-CoV-2 RNA (RT-PCR) Negative (Negative) Group A Strep (PCR) Not detected (Negative) 10/20/24 10/21/24 10/21/24 Range/Units 22:26 04:28 05:17 WBC 17.8 H (4.5-10.0) K/mm3 RBC 4.52 L (4.6-6.20) M/mm3 Hgb 13.7 L (14.0-18.0) g/dL Hct 39.8 L (42.0-52.0) % MCV 88.1 (80-100) fl MCH 30.3 (26-34) pg MCHC 34.4 (32-36) g/dl RDW 12.5 (11.5-14.5) % Plt Count 204 (150-375) k/mm3 MPV 10.2 (7.4-10.4) fl Immature Gran % (Auto) 0.7 H (0-0.5) % Neut % (Auto) 88.0 H (45.5-73.1) % Lymph % (Auto) 6.0 L (18.3-44.2) % [place] % (Auto) 5.2 (2.6-8.5) % Eos % (Auto) 0.0 (0-4.4) % Baso % (Auto) 0.1 L (0.2-1.2) % Lymph # (Auto) 1.06 (0.9-3.2) K/mm3 [place] # (Auto) 0.9 H (0.1-0.6) K/mm3 Eos # (Auto) 0.0 (0-0.3) K/mm3 Baso # (Auto) 0.0 (0.0-0.1) K/mm3 Abs Immat Gran (auto) 0.12 H (0.00-0.031) K/mm3 Absolute Neuts (auto) 15.7 H (1.3-6.7) K/mm3 Absolute Nucleated RBC 0.000 (0.0-0.012) K/mm3 Nucleated RBC % 0.0 (0.0-0.2) % Sodium 139 (137-145) mmol/L Potassium 3.8 (3.4-5.0) mmol/L Chloride 105 (98-107) mmol/L Carbon Dioxide 23 (22-30) mmol/L Anion Gap 11 (4-12) mmol/L BUN 12 D (9-20) mg/dL Creatinine 0.58 L (0.7-1.3) mg/dL Estim Creat Clear Calc 240 ml/min Estimated GFR > 60 (59 - ) Glucose 155 H (65-110) mg/dL POC Capillary Glucose 147 H (65-105) mg/dl Calcium 9.4 (8.4-10.2) mg/dL Total Bilirubin (0.2-1.3) mg/dL AST (17-59) U/L ALT (6-50) U/L Alkaline Phosphatase (38-126) U/L Total Protein (6.3-8.2) g/dL Albumin (3.5-5.1) g/dL Procalcitonin 0.1 ng/mL Nasal MRSA (PCR) Not detected (NOT DETECTE) Influenza A (RT-PCR) (Negative) Influenza B (RT-PCR) (Negative) RSV (RT-PCR) (Negative) SARS-CoV-2 RNA (RT-PCR) (Negative) Group A Strep (PCR) (Negative) <Natalie Cheney PA-C - Last Filed: 10/22/24 17:26> Lab Results 10/20/24 10/20/24 10/20/24 Range/Units 18:31 18:51 18:59 WBC 19.9 H (4.5-10.0) K/mm3 RBC 4.98 (4.6-6.20) M/mm3 Hgb 15.1 (14.0-18.0) g/dL Hct 45.2 (42.0-52.0) % MCV 90.8 (80-100) fl MCH 30.3 (26-34) pg MCHC 33.4 (32-36) g/dl RDW 12.7 (11.5-14.5) % Plt Count 239 (150-375) k/mm3 MPV 10.2 (7.4-10.4) fl Immature Gran % (Auto) 0.9 H (0-0.5) % Neut % (Auto) 79.0 H (45.5-73.1) % Lymph % (Auto) 12.8 L (18.3-44.2) % [place] % (Auto) 6.8 (2.6-8.5) % Eos % (Auto) 0.3 (0-4.4) % Baso % (Auto) 0.2 (0.2-1.2) % Lymph # (Auto) 2.55 (0.9-3.2) K/mm3 [place] # (Auto) 1.4 H (0.1-0.6) K/mm3 Eos # (Auto) 0.1 (0-0.3) K/mm3 Baso # (Auto) 0.0 (0.0-0.1) K/mm3 Abs Immat Gran (auto) 0.17 H (0.00-0.031) K/mm3 Absolute Neuts (auto) 15.7 H (1.3-6.7) K/mm3 Absolute Nucleated RBC 0.000 (0.0-0.012) K/mm3 Nucleated RBC % 0.0 (0.0-0.2) % Sodium 140 (137-145) mmol/L Potassium 3.8 (3.4-5.0) mmol/L Chloride 106 (98-107) mmol/L Carbon Dioxide 23 (22-30) mmol/L Anion Gap 11 (4-12) mmol/L BUN 22 H (9-20) mg/dL Creatinine 0.90 (0.7-1.3) mg/dL Estim Creat Clear Calc 156 ml/min Estimated GFR > 60 (59 - ) Glucose 131 H (65-110) mg/dL POC Capillary Glucose (65-105) mg/dl Calcium 9.4 (8.4-10.2) mg/dL Total Bilirubin 0.3 (0.2-1.3) mg/dL AST 43 (17-59) U/L ALT 60 H (6-50) U/L Alkaline Phosphatase 55 (38-126) U/L Total Protein 7.7 (6.3-8.2) g/dL Albumin 4.3 (3.5-5.1) g/dL Procalcitonin ng/mL Nasal MRSA (PCR) (NOT DETECTE) Influenza A (RT-PCR) Negative (Negative) Influenza B (RT-PCR) Negative (Negative) RSV (RT-PCR) Negative (Negative) SARS-CoV-2 RNA (RT-PCR) Negative (Negative) Group A Strep (PCR) Not detected (Negative) 10/20/24 10/21/24 10/21/24 Range/Units 22:26 04:28 05:17 WBC 17.8 H (4.5-10.0) K/mm3 RBC 4.52 L (4.6-6.20) M/mm3 Hgb 13.7 L (14.0-18.0) g/dL Hct 39.8 L (42.0-52.0) % MCV 88.1 (80-100) fl MCH 30.3 (26-34) pg MCHC 34.4 (32-36) g/dl RDW 12.5 (11.5-14.5) % Plt Count 204 (150-375) k/mm3 MPV 10.2 (7.4-10.4) fl Immature Gran % (Auto) 0.7 H (0-0.5) % Neut % (Auto) 88.0 H (45.5-73.1) % Lymph % (Auto) 6.0 L (18.3-44.2) % [place] % (Auto) 5.2 (2.6-8.5) % Eos % (Auto) 0.0 (0-4.4) % Baso % (Auto) 0.1 L (0.2-1.2) % Lymph # (Auto) 1.06 (0.9-3.2) K/mm3 [place] # (Auto) 0.9 H (0.1-0.6) K/mm3 Eos # (Auto) 0.0 (0-0.3) K/mm3 Baso # (Auto) 0.0 (0.0-0.1) K/mm3 Abs Immat Gran (auto) 0.12 H (0.00-0.031) K/mm3 Absolute Neuts (auto) 15.7 H (1.3-6.7) K/mm3 Absolute Nucleated RBC 0.000 (0.0-0.012) K/mm3 Nucleated RBC % 0.0 (0.0-0.2) % Sodium 139 (137-145) mmol/L Potassium 3.8 (3.4-5.0) mmol/L Chloride 105 (98-107) mmol/L Carbon Dioxide 23 (22-30) mmol/L Anion Gap 11 (4-12) mmol/L BUN 12 D (9-20) mg/dL Creatinine 0.58 L (0.7-1.3) mg/dL Estim Creat Clear Calc 240 ml/min Estimated GFR > 60 (59 - ) Glucose 155 H (65-110) mg/dL POC Capillary Glucose 147 H (65-105) mg/dl Calcium 9.4 (8.4-10.2) mg/dL Total Bilirubin (0.2-1.3) mg/dL AST (17-59) U/L ALT (6-50) U/L Alkaline Phosphatase (38-126) U/L Total Protein (6.3-8.2) g/dL Albumin (3.5-5.1) g/dL Procalcitonin 0.1 ng/mL Nasal MRSA (PCR) Not detected (NOT DETECTE) Influenza A (RT-PCR) (Negative) Influenza B (RT-PCR) (Negative) RSV (RT-PCR) (Negative) SARS-CoV-2 RNA (RT-PCR) (Negative) Group A Strep (PCR) (Negative) <Marito Odell MD - Last Filed: 10/20/24 22:45> Imaging Data Radiologist's impression: Impressions Chest X-Ray 10/20/24 18:43 IMPRESSION: No acute cardiopulmonary pathology. Soft Tissue Neck CT 10/20/24 20:17 IMPRESSION: 1. Slightly prominent epiglottis. Inflammatory changes are possible. 2. Lymphadenopathy in the parapharyngeal areas. 3. Soft tissue swelling in the area of the proximal esophagus. Further evaluation advised. 4. No definite enhancement seen in the area of the tonsils <Marito Odell MD - Last Filed: 10/20/24 22:45> Critical Care Time Critical Care Time Critical Care Time: Yes <Marito Odell MD - Last Filed: 10/20/24 22:45> Total Critical Care Time: 35 <Marito Odell MD - Last Filed: 10/20/24 22:45> Discharge Plan Discharge Clinical Impression: Acute epiglottitis Qualifiers: Airway obstruction: without obstruction Qualified Code(s): J05.10 - Acute epiglottitis without obstruction <Natalie Cheney PA-C - Last Filed: 10/22/24 17:26> Patient Disposition: Still a Patient <Natalie Cheney PA-C - Last Filed: 10/22/24 17:26> Condition: Serious <Natalie Cheney PA-C - Last Filed: 10/22/24 17:26>
--- NOTE | 2024-10-20 18:06 | ECG_ITS ---
Test Date: 2024-10-20 18:17:40 Measurements Intervals [place] Rate: 116 P: 53 NV: 182 QRS: 26 QRSD: 94 T: 46 QT: 298 QTc: 414 Interpretive Statements SINUS TACHYCARDIA LOW QRS VOLTAGE IN PRECORDIAL LEADS [QRS DEFLECTION < 1.0 mV IN CHEST LEADS] ABNORMAL RHYTHM ECG No previous ECG available for comparison Electronically Signed On 10-21-2024 07:42:51 CDT by Larry Givens M.D.
--- NOTE | 2024-10-20 18:21 | PCRCNOTE ---
tx late due to pt not being in a room
[2024-10-20] MEDS: IPRATROPIUM 0.5 MG/ALBUTEROL SULFATE 2.5 MG AMPUL.NEB 3 ML INHALATION (18:31)
[2024-10-20] MEDS: dexAMETHasone SOD PHOS INJ 10 MG/ML 1 ML VIAL IV PUSH (18:41)
[2024-10-20 18:53] LABS: Alanine Aminotransferase 60 U/L (6-50); Albumin Level 4.3 g/dL (3.5-5.1); Alkaline Phosphatase 55 U/L (38-126); Anion Gap 11 mmol/L (4-12); Aspartate Amino Transferase 43 U/L (17-59); Bilirubin,Total 0.3 mg/dL (0.2-1.3); Blood Urea Nitrogen 22 mg/dL (9-20); Calcium 9.4 mg/dL (8.4-10.2); Carbon Dioxide 23 mmol/L (22-30); Chloride 106 mmol/L (98-107); Estimated CRCL calculation 156 ml/min; Estimated Glomerular Filt Rate > 60; Glucose 131 mg/dL (65-110); Potassium 3.8 mmol/L (3.4-5.0); Sodium 140 mmol/L (137-145); Total Protein 7.7 g/dL (6.3-8.2)
[2024-10-20 19:05] LABS: Hematocrit 45.2 % (42.0-52.0); Hemoglobin 15.1 g/dL (14.0-18.0); Immature Granulocyte Percent A 0.9 % (0-0.5); Lymphocytes Absolute Auto 2.55 K/mm3 (0.9-3.2); Mean Corpuscular HGB Conc 33.4 g/dl (32-36); Mean Corpuscular Hemoglobin 30.3 pg (26-34); Mean Corpuscular Volume 90.8 fl (80-100); Nucleated Red Blood Cells Absolute Auto 0.000 K/mm3 (0.0-0.012); Nucleated Red Blood Cells Perc 0.0 % (0.0-0.2); Red Blood Count 4.98 M/mm3 (4.6-6.20); White Blood Count 19.9 K/mm3 (4.5-10.0)
[2024-10-20 19:07] LABS: Platelet Count Result 239 k/mm3 (150-375)
--- OUTSIDE RECORDS SUMMARY | 2024-10-20 19:08 | XMS_ITS | Encounter Summary ---
Author Organization [facility] Address [address] [place] [id number] Care Team Providers Care Hall Tender Name Role Phone Sharon Torres MD Primary Care Provider + Encounter Details Date Type Department Care Team (Late Contact Info) Description 03/09/2024 [employer] Message Enc [address] [id number] [place], [facility] Provider sleep study Social History Tobacco Use [...] on file Legal Sex Male 11:16 AM [employer] Gender Identity Not on file Sexual Orientation [...] Description 10/21/2024 9:00 AM CDT Office Visit [facility] [address] [place] [address] [place] [address] [phone] Sveta Servin NP [address] [place] [phone] 02/04/2025 9:30 AM CDT Office Visit [facility] [place] [address] [place] [address] [phone] Sharon Torres MD [address] [place] [address] [phone] documented as of this encounter Visit Diagnoses Not on filedocumented in this encounter Care Teams Hall Tender Relationship Specialty Start Date End Date Sharon Torres MD [address] [facility] [address] [place] [address] [phone] PCP - General FAMILY PRACTICE 01/21/24 documented as of this encounter
--- OUTSIDE RECORDS SUMMARY | 2024-10-20 19:08 | XMS_ITS | Continuity of Care Document ---
Author Organization [facility] Address [address] [facility] [address] [place] [address] Phone Care Team Providers Care Manager User Experience Name Role Phone Tessa Hector Unavailable Unavailab [...] Providers Copied on Encounter [facility], [address], [place], [address], tel:[phone] [facility] Osteoarthritis of left knee, unspecified osteoarthritis type 0 Lori Zarate. [address], [place], [place], [id number]. tel:[phone] OFFICE/OUTPA TIENT VISIT EST [facility], [address], [place], [address], [place] tel:[phone] [facility] Osteoarthritis of left knee, unspecified osteoarthritis type Fe-0 0 Boxdorfer Tessa. [address] [address], [place], [place], [id number]. tel:[phone] [facility], [address] [address], [place], [address], [place] tel:[phone] [facility] Osteoarthritis of left knee, unspecified osteoarthritis type Apr- 0 Boxdorfer Tessa. [address] [address], [place], [place], [id number]. tel:[phone] OFFICE/OUTPA TIENT VISIT EST [facility], [address], [address], [place] tel:[phone] [facility] Osteoarthritis of left knee, unspecified osteoarthritis type 0 Boxdorfer Tessa. [address], [id number]. tel:[phone] [facility], [address] [address], [place], [address], [place] tel:[phone] [facility] Osteoarthritis of right knee, unspecified osteoarthritis type 9 Boxdorfer Tessa. [address], [id number]. tel:[phone] [facility], [address], [address], [place] tel:[phone] [facility] Osteoarthritis of right knee, unspecified osteoarthritis type 0 9 Boxdor[address] Tessa. [address], [id number]. tel:[phone] OFFICE/OUTPA TIENT VISIT EST [facility], [address], [address], [place] tel:[phone] [facility] Left knee pain, unspecified chronicityPrimar y osteoarthritis of left kneeOsteoarthrit is of right knee, unspecified osteoarthritis type 0 9 Boxdorfer Tessa. [address] [facility] [address], [place], [place], [id number]. tel:[phone] [facility], [address] [facility] [address], [place], [address], [place] tel:[phone] [facility] Osteoarthritis of right knee, unspecified osteoarthritis type Feb- 9 Sigmund [address]. [address] [facility] [address], [place], [place], [id number]. tel:[phone] [facility], [address] [address], [place], [address], [place] tel:[phone] [facility] Osteoarthritis of right knee, unspecified osteoarthritis type 8 Sigmund Ed. [address] [facility] [address], [place], [place], [id number]. tel:[phone] [facility], [address] [address], [place], [address], [place] tel:[phone] [facility] Osteoarthritis of right knee, unspecified osteoarthritis type 0 8 Boxdorfer Tessa. [address], [place], [place], [id number]. tel:[phone] [facility], [address] [address], [place], [address], [place] tel:[phone] [facility] Osteoarthritis of right knee, unspecified osteoarthritis type 8 Sigmund Ed. [address] [facility] [address], [place], [place], [id number]. tel:[phone] OFFICE/OUTPA TIENT VISIT EST [facility], [address], [place], [address], [place] tel:[phone] [facility] Internal derangement of right kneeOsteoarthrit is of right knee, unspecified osteoarthritis type 8 Sigmund Ed. [address] [facility] [address], [place], [place], [id number]. tel:[phone] OFFICE/OUTPA TIENT VISIT EST [facility], [address] [facility] [address], [place], [address], [place] tel:[phone] [facility] Internal derangement of right knee 8 Louisa Ward. [address] [facility] [address], [place], [place], [address]. tel:[phone] OFFICE/OUTPA TIENT VISIT NEW [facility], [address] [facility] [address], [place], [address], [place] tel:[phone] [facility] Right knee pain, unspecified chronicityBody mass index (BMI) 40.0-44.9, adultOsteoarthri tis of right knee, unspecified osteoarthritis type 8 Rocklexielori Zarate. [address] [facility] [address], [place], [place], [address]. tel:[phone] Family History Family Member Type Diagnosis Age At Onset aunt Problem (finding) Heart disease mom Problem (finding) Cancer, liver pancreati c dad & mom Problem (finding) hypertension Payers Payer name Insurance type Covered constitution party ID Authoriza tikimberly(s) Blue Access PPO E2 [id number] Social History Type Description Quantity Date Captured [...] Prescribed Instructions Date Instruction Additional Infor amalia Apply moist heat or cold 20 min [...] Osteoarthritis of right knee, unspecified osteoarthritis type Giving encouragement to exercise Related to Body mass index (BMI) 40.0-44.9, adult Home exercise program. Related t o Right knee pain, unspecified chronicity Take medication as directed. Rel ated to Right knee pain, unspecified chronicity Assessments Type Assessment Date assessment Osteoarthritis of left knee, uns pecified osteoarthritis type Patient Care Teams Name Effective Dates (start - stop) Status Members No Information
--- OUTSIDE RECORDS SUMMARY | 2024-10-20 19:08 | XMS_ITS | Clinical Summary ---
Author Organization [facility] Address [address] [place] [address] Care Team Providers Care Boat Camp Operator Name Role Phone Unavailable Primary Care Provider [...] Description 2024 10:00 AM CDT Office Visit [facility] Bariatrics and General Surgery at the [facility] [address] [facility] [address] [place] [address] Morbid obesity with BMI of 50.0-59.9, adult (CMS/HCC) (Primary Dx) 09/23/2024 Orders Only [facility] - [address] [address] Nikkie Mckeon A Class 3 severe obesity due to excess calories with serious comorbidity and body mass index (BMI) of 50.0 to 59.9 in adult; Medication monitoring encounter; Essential hypertension 09/22/2024 8:00 AM CDT Video Visit [facility] - [address], [address] [address] Genny Agosto MD Essential hypertension (Primary Dx); Class 3 obesity; Vitamin D deficiency; BMI 45.0-49.9, adult ([facility]/HCC); Medication management 09/03/2024 External Device Data STL ABSTRACTION Provider, Abstract 09/02/2024 External Device Data ST[facility] ABSTRACTION Provider, Abstract 09/02/2024 External Device Data [facility] ABSTRACTION Provider, Abstract 08/24/2024 8:00 AM CDT Video Visit [facility] - [address], [address] [address] Genny Agosto MD Essential hypertension (Primary Dx); Class 3 obesity; BMI 50.0-59.9, adult ([facility]); Insulin resistance; Vitamin D deficiency; Elevated ALT measurement 08/19/2024 Abstract [facility] Bariatrics and General Surgery at the [facility] [address] [place] [address] RD [address] [place] [address] Akosua Segura, RN 08/14/2024 Abstract [facility] Bariatrics and General Surgery at the [facility] [address] [place] [address] Akosua Segura, RN 08/13/2024 10:00 AM CDT Office Visit [facility] Bariatrics and General Surgery at the [facility] [address] [place] [address] RD [address] [place] [address] Aurelia Pena, ALEXANDER Morbid obesity with BMI of 50.0-59.9, adult ([facility]) (Primary Dx) 07/28/2024 External Device Data STL ABSTRACTION Provider, Abstract 07/28/2024 External Device Data STL ABSTRACTION Provider, Abstract 07/28/2024 External Device Data STL ABSTRACTION Provider, Abstract 07/27/2024 8:30 AM CDT Video Visit [facility] - [address], [address] [address] Genny Agosto MD Essential hypertension (Primary Dx); Class 3 severe obesity due to excess calories with serious comorbidity and body mass index (BMI) of 50.0 to 59.9 in adult; Medication monitoring encounter 07/23/2024 Telephone [facility] - [address], [address] [address] Genny Agosto MD Needs Appointment 07/22/2024 10:15 AM CDT Office Visit [facility] Bariatrics and General Surgery at the [facility] [address] [place] [address] RD [address] [place] [address] Sharon Streeter MD Morbid obesity with BMI of 50.0-59.9, adult ([facility]) (Primary Dx); Gastroesophageal reflux disease, unspecified whether esophagitis present; HTN (hypertension), benign 07/22/2024 Abstract [facility] Bariatrics and General Surgery at the [address] [place] [address] Sarita Fay RN 07/22/2024 Orders Only [facility] Bariatrics and General Surgery at the [address] [place] [address] Sarita Fay RN Morbid obesity with BMI [...] Description 10/22/2024 9:00 AM CDT Video Visit [facility] [address] [facility], [address] [address] [place] [address] [place] [address] 11/05/2024 10:00 AM CDT Office Visit [facility] Bariatrics and General Surgery at the [facility] [address] [place] [address] Aurelia Pena, RD [address] [place] [address] Health Maintenance Due Date Last Done Comments [...] Agosto MD CHEMISTRY ORDERABLES Final Resu lt [facility] [phone] * HEMOGLOBIN A1C (09/23/2024 8:04 AM CDT) Blood 09/23/2024 8:04 AM CDT Genny Agosto MD CHEMISTRY ORDERABLES Final Resu lt Performing Organization Address [facility] Co de Phone Number [facility] [phone] * INSULIN LEVEL (09/23/2024 8:04 AM CDT) Blood 09/23/2024 8:04 AM CDT us Genny Agosto MD CHEMISTRY ORDERABLES Final Resu lt Performing Organization Address [facility] de Phone Number [facility] [phone] * VITAMIN D 25 HYDROXY (09/23/2024 8:04 AM CDT) Blood 09/23/2024 8:04 AM CDT Genny Agosto MD CHEMISTRY ORDERABLES Final Resu lt Performing Organization Address [facility] Co de Phone Number [facility] [phone] * TSH REFLEXIVE (09/23/2024 8:04 AM CDT) Blood 09/23/2024 8:04 AM CDT Genny Agosto MD CHEMISTRY ORDERABLES Final Resu lt Performing Organization Address [facility] Co de Phone Number [facility] [phone] * CBC WITH DIFFERENTIAL (09/23/2024 8:04 AM CDT) Blood 09/23/2024 8:04 AM CDT Genny Agosto MD HEMATOLOGY ORDERABLES Final Res ult Performing Organization Address [facility] Co de Phone Number [facility] [phone] * VITAMIN B12 AND FOLATE (09/23/2024 8:04 AM CDT) Blood 09/23/2024 8:04 AM CDT us Genny Agosto MD CHEMISTRY ORDERABLES Final Resu lt Performing Organization Address [facility]/ZIP Co de Phone Number [facility] [phone] * VITAMIN B1 LEVEL (09/23/2024 8:04 AM CDT) Blood 09/23/2024 8:04 AM CDT us Genny Agosto MD CHEMISTRY ORDERABLES Final Resu lt Performing Organization Address [facility] Co de Phone Number [facility] [phone] * IRON, TIBC, AND PERCENT SATURATION (09/23/2024 8:04 AM CDT) Blood 09/23/2024 8:04 AM CDT us Genny Agosto MD CHEMISTRY ORDERABLES Final Resu lt Performing Organization Address [facility] Co de Phone Number [facility] [phone] from Last 3 Months Insurance BS BLUE ACCESS/TRUE BLUE PPO
--- OUTSIDE RECORDS SUMMARY | 2024-10-20 19:08 | XMS_ITS | Clinical Summary ---
Author Organization [facility] Address [address] [place] [address] Care Team Providers Care Supervisor Edging Name Role Phone Sharon Torres MD Primary [...] trying Zepbound. He is open to paying [id number] if needed. 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 [employer] Not on file Not on file Not on file Last Filed Vital Signs Vital Sign Reading Time Taken Comments Blood Pressure 128/82 02/19/2024 8:54 AM COOPERATIVE MANAGER Pulse 72 02/19/2024 8:54 AM COOPERATIVE MANAGER Temperature 36.7 C (98.1 F) 02/19/2024 8:54 AM COOPERATIVE MANAGER Respiratory Rate 20 02/19/2024 8:54 AM COOPERATIVE MANAGER Oxygen Saturation 98% 02/19/2024 8:54 AM COOPERATIVE MANAGER Inhaled Oxygen Concentration - - Weight 190.1 kg (419 lb) 02/05/2024 8:59 AM CDT Height 191.8 cm (6' 3.5) 02/05/2024 8:59 AM CDT Body Mass Index 51.68 02/05/2024 8:59 AM CDT Plan of Treatment Upcoming Encounters Date Type Department Care Team (Late st Contact Info) Description 10/21/2024 9:00 AM CDT Office Visit [facility] [address] [facility] [address] [place] [address] Sveta Servin NP [address] [place] [address] 02/04/2025 9:30 AM CDT Office Visit [facility] [address] [facility] [address] [place] [address] Sharon Torres MD [address] [place] [address] Health Maintenance Due Date Last Done Comments Hepatitis B Vaccines (1 of 3 - 19+ 3-dose series) 09/25/1995 COVID-19 Vaccine (2023-2 5 season) 2023 11/15/2021, 08/11/2020, 07/21/2020 PHQ-2 (Physician [place]) 04/15/2024 01/21/2024 Annual Physical 01/20/2025 01/21/2024 Colorectal [...] 8:45 AM CDT) COLOGUARD RESULT Negative Negative [facility] (CLIA #:[id number]) Comment: NEGATIVE TEST RESULT. A negative Cologuard [...] (Megan Morel al, N Engl J Med 2014;370(14):8588-2689) The normal value (reference range) for this assay is negative. COLOGUARD RE-SCREENING RECOMMENDATION: Periodic colorectal cancer screening is an important part of preventive healthcare for asymptomatic individuals at average risk for colorectal cancer. Following a negative Cologuard result, the [place] Cancer Society and U.S. Multi-Society Task Force screening guidelines recommend a Cologuard re-screening interval of 3 years. References: [place] [employer] Guideline for Colorectal Cancer Screening: https://www.cancer.org/cancer/efiup-lubqur-mdfzur/byudrajhk-spgosnnrl-eskrbpn/ac s-rec ommendations.html.; Wang DK, Ifeanyi CR, Moe CarmonaK, Colorectal Cancer Screening: Recommendations for Physicians and Patients from the U.S. Multi-Society Task Force on Colorectal Cancer Screening , Am J Gastroenterology 2017; 112:8297-0024. TEST DESCRIPTION: Composite algorithmic analysis of stool [...] (Megan Morel al, N Engl J Med 2014;370(14):7739-5335.) Cologuard may produce a false negative or false positive result (no colorectal cancer or precancerous polyp present at colonoscopy follow up). A negative Cologuard test result does not guarantee the absence of CRC or advanced adenoma (pre-cancer). The current Cologuard screening interval is every 3 years. ([place] Cancer Society and U.S. Multi-Society Task Force). Cologuard performance data in a 10,000 patient pivotal study using colonoscopy as the reference method can be accessed at the following location: www.[employer]/results. Additional description of the Cologuard test process, warnings and precautions can be found at www.cologuard.com. STOOL STOOL SPECIMEN / Unknown 01/28/2024 8:45 AM CDT 01/29/2024 9:53 AM CDT us Sharon Torres MD BODY FLUIDS AND STOOLS O RDERABLES Final Result Performing Organization Address [facility] de Phone Number [employer] ([address]) [address] [place] [address], [facility] (CLIA #:[id number]) [address] [place] [address] * HEPATITIS C ANTIBODY W/RFX TO HCV [...] AM CDT Performed at: 01 - [facility] [address] [id number] Independent Consultant: Errol Singleton PhD, Phone: [phone] us Sharon Torres MD LABORATORY Final Re sult Performing Organization Address City/[facility] Co de Phone Number [facility] [address] [place] [address] [facility] 1 from Last 3 Months or Most Recently Relevant to Health Maintenance Insurance [facility] Care Teams Supervisor Edging Relationship Specialty Start Date End Date Sharon Torres MD [address] [place] [address] [phone] PCP - General FAMILY PRACTICE 01/21/24
--- OUTSIDE RECORDS SUMMARY | 2024-10-20 19:08 | XMS_ITS | Referral Summary ---
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
--- OUTSIDE RECORDS SUMMARY | 2024-10-20 19:08 | XMS_ITS | Clinical Summary ---
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
--- OUTSIDE RECORDS SUMMARY | 2024-10-20 19:08 | XMS_ITS | Encounter Summary ---
Author Organization [facility] Address [address] [place] [address] Care Team Providers Care Nipple Machine Operator Name Role Phone Unavailable Primary Care Provider Unavailabl e Encounter Details Date Type Department Care Team (Late st Contact Info) Description 07/07/2024 Chart Note [facility] Bariatrics and General Surgery at the [facility] [address] [place] [address] Sharon Streeter MD [address] [place] [address] Social History Tobacco Use Types [...] Description 10/22/2024 9:00 AM CDT Video Visit [facility] - [address] [phone] [place] [address] [place] [phone] 11/05/2024 10:00 AM CDT Office Visit [facility] Bariatrics and General Surgery at the [facility] [address] [place] [address] [place] [address] documented as of this encounter Visit Diagnoses Not on filedocumented in this encounter
[2024-10-20 19:16] LABS: Influenza A QL RT-PCR Negative (Negative); Influenza B QL RT-PCR Negative (Negative); RSV RNA, RT-PCR Negative (Negative); SARS-CoV-2 RNA PCR Negative (Negative)
[2024-10-20] MEDS: ACETAMINOPHEN 500 MG TABLET 1000 MG PO (19:23)
[2024-10-20 19:29] LABS: Strep Group A RT-PCR NOT DETECTED (Negative)
[2024-10-20] MEDS: LACTATED RINGERS 1,000 ML 999 ML IV CONT ×3 (20:19→22:29)
[2024-10-20] MEDS: AMPICILLIN SODIUM/SULBACTAM 3 GM in SODIUM CHLORIDE 0.9% IV 100 ML 200 ML IVPB (21:46)
[2024-10-20] MEDS: racEPINEPHrine 2.25% NEBU SOLN 0.5 ML VIAL.NEB INHALATION (22:15)
[2024-10-21] VITALS (22 sets, daily range): BP systolic 118–158; BP diastolic 62–99; PULSE 85–130; RESP 15–22; TEMP 36.3–38.3; O2SAT 93–100
--- NOTE | 2024-10-21 00:05 | ADMGEN ---
This patient, Ed Siu, was admitted to Intensive Care Unit-3. Patient/family oriented to hospital policies and general routines including ID bracelet, bed and alarms, visiting hours, pain management, procedures, bathroom and other care routines, personal items, smoking policy, room service/diet, and visiting hours. Information on how to activate the Rapid Response Team has been discussed. Patient/Family are encouraged to report perceived risks to care and to ask questions if they do not understand what they are told or what they should do.
[2024-10-21 01:04] LABS: MRSA (PCR) NOT DETECTED (NOT DETECTE)
[2024-10-21] MEDS: ALBUTEROL SULFATE NEB 2.5 MG/3 ML INH INHALATION ×4 (01:21→20:03)
[2024-10-21] MEDS: AMPICILLIN SODIUM/SULBACTAM 3 GM in SODIUM CHLORIDE 0.9% IV 100 ML 200 ML IVPB ×3 (03:36→22:34)
--- NOTE | 2024-10-21 04:22 | PM.IMHP ---
H&P: HPI History of Present Illness Date/Time: 10/21/24 04:22 Chief Complaint: Sore throat, feel like throat is closing Narrative: 49-year-old male with a past medical history of essential hypertension and morbid obesity class 3 who presented to the ER with sore throat that started yesterday with worsening symptoms feeling as if his throat is going to close. He reports 2 days of sore throat and postnasal drip. He has had progressive hoarseness of voice. He feels like there is something stuck in his throat. He denies any difficulty managing secretions but is extremely painful to swallow. He denies having any fevers or chills but was noted to be febrile in the ER with a T-max of 100.3?. He was significantly tachycardic but he denied sensation of palpitations or chest pain. He denied actual shortness of breath for reported that the sensation of fullness in his throat made tumor free they would not be able to breathe. He reports pain in the left lateral neck on palpation. He has had decreased appetite. He denies any nausea or vomiting. He reports that he is coughing but his cough is more due to trying to clear the sensation of fullness in his throat. He has had a prior history of tonsillitis few years back. On exam patient did have bilateral cerumen impaction. He states that he subtle a ear nose throat doctor couple weeks ago for unrelated cyst in his neck that sounds like it was a superficial inclusion cyst that was drained. He stated that he had the cerumen impaction noted by the ear nose and throat doctor in said that the patient needed to have his ears cleaned out but he did not treated years. He reports that for several months he has been having the sensation of popping in the left ear when he chews or moves his jaw or tries to clear his throat. He reports that he is on metformin for weight loss and does not have diabetes. He reports that his last A1c was below the cutoff for pre diabetes is well. Review of Systems Review of Systems: 12 systems were reviewed with pertinent positives and negatives per HPI. Except as documented in the HPI, all other systems were reviewed and are negative. [facility] Past Medical History Medical History (Updated 10/21/24 @ 09:09 by Karla Bean DO) Morbid obesity with BMI of 50.0-59.9, adult Essential hypertension Surgical History Surgical History No history of previous surgery Family History Family History (Updated 10/21/24 @ 08:45 by Karla eBan DO) Mother Pancreatic cancer, Onset Age: 56 Father Salivary gland cancer Dementia Age older than 80 years Grandparent Alcohol abuse Grandparent Cerebrovascular accident Social History Social History (Updated 10/21/24 @ 08:47 by Karla Bean DO) Social History: The patient is single and lives with a roommate. He used to smoke a pack of cigarettes per day for about 5 years. He reports the drinking alcohol about once every other month. Denies illicit substance use. He works for [employer]. Code status: Full code Surrogate decision maker: Xiomara Tomlinson (Sister) Smoking packs per day: 1 Smoking cigarettes per day: 20.0 Years smoked: 5 Smoking pack-years: 5.00 Smoking status: Former smoker Tobacco type: cigarettes Alcohol intake: current Drinks per week: 1 Substance use: never Do You Feel Safe in your Home?: Yes Lack of Transportation: No Lack of Food: Never True Current Housing: I Have Housing Concerned About Future Housing: No Difficulty Paying Gas/Electric Bills: No Difficulty Paying for Meds: No Currently Unemployed: No Education: Associate Degree Difficulty w/ Childcare or Family Care: No Spiritual care concerns: No Meds Home Medications and Allergies Home Medications ?Medication ?Instructions ?Recorded ?Confirmed ?Type hydrochlorothiazide 25 mg tablet 25 mg PO DAILY 10/21/24 10/21/24 History lisinopril 40 mg tablet 40 mg PO HS 10/21/24 10/21/24 History metformin 500 mg tablet,extended 1,500 mg PO 1200 10/21/24 10/21/24 History release 24 hr metoprolol succinate 25 mg 25 mg PO HS 10/21/24 10/21/24 History tablet,extended release 24 hr Allergies Allergy/AdvReac Type Severity Reaction Status Date / Time No Known Allergies Allergy Mild Verified 10/21/24 00:16 Vital Signs Vital Signs - 24 hr 10/20/24 18:06 10/20/24 18:31 10/20/24 18:42 Temperature 98.0 F Pulse Rate 121 H 124 H 127 H Respiratory Rate 18 16 Blood Pressure 173/92 H 168/101 H Pulse Oximetry 99 96 Oxygen Delivery Room Air Room Air Fraction of Inspired Oxygen 10/20/24 18:42 10/20/24 19:01 10/20/24 19:30 Temperature Pulse Rate 133 H 138 H Respiratory Rate 18 17 Blood Pressure 165/101 H Pulse Oximetry 99 99 97 Oxygen Delivery Room Air Fraction of Inspired Oxygen 10/20/24 19:31 10/20/24 19:45 10/20/24 19:54 Temperature Pulse Rate 140 H 133 H 137 H Respiratory Rate 19 22 H 16 Blood Pressure 177/114 H 178/93 H Pulse Oximetry 95 97 96 Oxygen Delivery Fraction of Inspired Oxygen 10/20/24 19:55 10/20/24 20:00 10/20/24 20:01 Temperature 100.3 F H Pulse Rate 139 H 131 H 140 H Respiratory Rate 19 29 H Blood Pressure 178/93 H 151/107 H Pulse Oximetry 97 96 96 Oxygen Delivery Fraction of Inspired Oxygen 10/20/24 20:19 10/20/24 20:20 10/20/24 20:30 Temperature Pulse Rate 143 H Respiratory Rate 22 H Blood Pressure 133/114 H Pulse Oximetry 97 97 93 Oxygen Delivery Fraction of Inspired Oxygen 10/20/24 20:31 10/20/24 20:45 10/20/24 20:58 Temperature 99.6 F Pulse Rate 133 H Respiratory Rate Blood Pressure 151/91 H Pulse Oximetry 96 98 Oxygen Delivery Fraction of Inspired Oxygen 10/20/24 21:00 10/20/24 21:15 10/20/24 21:30 Temperature Pulse Rate 130 H 130 H 132 H Respiratory Rate 18 18 Blood Pressure Pulse Oximetry Oxygen Delivery Fraction of Inspired Oxygen 10/20/24 21:45 10/20/24 22:00 10/20/24 22:15 Temperature Pulse Rate 126 H 128 H 124 H Respiratory Rate 13 14 28 H Blood Pressure Pulse Oximetry 97 95 Oxygen Delivery Fraction of Inspired Oxygen 10/20/24 22:15 10/20/24 22:16 10/20/24 22:19 Temperature Pulse Rate 125 H 124 H 129 H Respiratory Rate Blood Pressure 184/162 H 156/90 H Pulse Oximetry 94 99 97 Oxygen Delivery Fraction of Inspired Oxygen 10/20/24 22:25 10/20/24 22:30 10/20/24 22:45 Temperature Pulse Rate 129 H 127 H 125 H Respiratory Rate 21 H 31 H Blood Pressure Pulse Oximetry 96 97 Oxygen Delivery Fraction of Inspired Oxygen 10/20/24 23:00 10/20/24 23:15 10/20/24 23:20 Temperature Pulse Rate 129 H 127 H Respiratory Rate 28 H 29 H 16 Blood Pressure 168/82 H Pulse Oximetry 98 96 97 Oxygen Delivery Fraction of Inspired Oxygen 10/20/24 23:38 10/21/24 00:00 10/21/24 00:00 Temperature 99.3 F Pulse Rate 125 H 130 H Respiratory Rate 25 H 20 Blood Pressure 166/79 H 149/74 H Pulse Oximetry 99 98 Oxygen Delivery Room Air Fraction of Inspired Oxygen 10/21/24 00:00 10/21/24 01:21 10/21/24 01:23 Temperature Pulse Rate 127 H 115 H 112 H Respiratory Rate 20 20 Blood Pressure Pulse Oximetry 99 Oxygen Delivery Room Air Fraction of Inspired Oxygen 21 10/21/24 02:00 10/21/24 02:00 Temperature Pulse Rate 118 H 118 H Respiratory Rate 15 Blood Pressure 144/85 H Pulse Oximetry 96 Oxygen Delivery Fraction of Inspired Oxygen Exam Narrative: Weight 190.8 kg BMI 51.2 Const: Other: Is no acute distress, morbidly obese, appears stated age HENMT: Other: Mucous membranes are tacky, mild erythema left posterior oropharynx, posterior pharynx markedly crowded, no trismus, no drooling, fair dentition, patient had bilateral cerumen impaction canal after gentle flushing of the years with hypoxia rate solution was able to visualize the patient's right tympanic membrane it. I have chronic perforation, multiple attempts were made to remove the cerumen from the patient's left ear without success still was not able to visualize the patient's tympanic membrane Eyes: Other: No scleral icterus, no conjunctival pallor Neck: Other: Left anterior cervical lymphadenopathy tender to palpation extending down the entire anterior cervical chain, no posterior irregular lymphadenopathy Resp: Other: Clear to auscultation bilaterally, no increased work of breathing, no stridor, no wheezing Cardio: Other: Sinus tachycardia, 2+ pulses bilateral upper and lower extremities, no murmur GI: Other: Obese, soft, nontender, positive bowel sounds Skin: Other: No jaundice, no pallor Neuro: Other: Alert oriented, speech is clear, no facial asymmetry, no localizing neurologic deficits noted during conversation Extrem: Other: No clubbing, cyanosis or edema Psych: Other: Appropriate mood and affect, pleasant and cooperative, judgment and insight intact H&P: Results Labs Labs: Laboratory Tests 10/21/24 04:28 10/21/24 04:28 10/20/24 10/20/24 10/20/24 18:31 18:51 18:59 WBC 19.9 H RBC 4.98 Hgb 15.1 Hct 45.2 MCV 90.8 MCH 30.3 MCHC 33.4 RDW 12.7 Plt Count 239 MPV 10.2 Immature Gran % (Auto) 0.9 H Neut % (Auto) 79.0 H Lymph % (Auto) 12.8 L [place] % (Auto) 6.8 Eos % (Auto) 0.3 Baso % (Auto) 0.2 Lymph # (Auto) 2.55 [place] # (Auto) 1.4 H Eos # (Auto) 0.1 Baso # (Auto) 0.0 Abs Immat Gran (auto) 0.17 H Absolute Neuts (auto) 15.7 H Absolute Nucleated RBC 0.000 Nucleated RBC % 0.0 Sodium 140 Potassium 3.8 Chloride 106 Carbon Dioxide 23 Anion Gap 11 BUN 22 H Creatinine 0.90 Estim Creat Clear Calc 156 Estimated GFR > 60 Glucose 131 H POC Capillary Glucose Calcium 9.4 Total Bilirubin 0.3 AST 43 ALT 60 H Alkaline Phosphatase 55 Total Protein 7.7 Albumin 4.3 Procalcitonin Nasal MRSA (PCR) Influenza A (RT-PCR) Negative Influenza B (RT-PCR) Negative RSV (RT-PCR) Negative SARS-CoV-2 RNA (RT-PCR) Negative Group A Strep (PCR) Not detected 10/20/24 10/21/24 10/21/24 22:26 04:28 05:17 WBC 17.8 H RBC 4.52 L Hgb 13.7 L Hct 39.8 L MCV 88.1 MCH 30.3 MCHC 34.4 RDW 12.5 Plt Count 204 MPV 10.2 Immature Gran % (Auto) 0.7 H Neut % (Auto) 88.0 H Lymph % (Auto) 6.0 L [place] % (Auto) 5.2 Eos % (Auto) 0.0 Baso % (Auto) 0.1 L Lymph # (Auto) 1.06 [place] # (Auto) 0.9 H Eos # (Auto) 0.0 Baso # (Auto) 0.0 Abs Immat Gran (auto) 0.12 H Absolute Neuts (auto) 15.7 H Absolute Nucleated RBC 0.000 Nucleated RBC % 0.0 Sodium 139 Potassium 3.8 Chloride 105 Carbon Dioxide 23 Anion Gap 11 BUN 12 D Creatinine 0.58 L Estim Creat Clear Calc 240 Estimated GFR > 60 Glucose 155 H POC Capillary Glucose 147 H Calcium 9.4 Total Bilirubin AST ALT Alkaline Phosphatase Total Protein Albumin Procalcitonin 0.1 Nasal MRSA (PCR) Not detected Influenza A (RT-PCR) Influenza B (RT-PCR) RSV (RT-PCR) SARS-CoV-2 RNA (RT-PCR) Group A Strep (PCR) Impressions Chest X-Ray 10/20/24 18:43 IMPRESSION: No acute cardiopulmonary pathology. Soft Tissue Neck CT 10/20/24 20:17 IMPRESSION: 1. Slightly prominent epiglottis. Inflammatory changes are possible. 2. Lymphadenopathy in the parapharyngeal areas. 3. Soft tissue swelling in the area of the proximal esophagus. Further evaluation advised. 4. No definite enhancement seen in the area of the tonsils Test Date: 2024-10-20 18:17:40 Measurements Intervals Rufus Rate: 116 P: 53 DC: 182 QRS: 26 QRSD: 94 T: 46 QT: 298 QTc: 414 Interpretive Statements SINUS TACHYCARDIA LOW QRS VOLTAGE IN PRECORDIAL LEADS [QRS DEFLECTION < 1.0 mV IN CHEST LEADS] ABNORMAL RHYTHM ECG No previous ECG available for comparison All imaging and EKGs personally reviewed and interpreted. And unless stated otherwise agree with radiologic and cardiology interpretation. EKG: Assessment and Plan Assessment and plan (1) Acute epiglottitis: Qualifiers: Airway obstruction: without obstruction Qualified Code(s): J05.10 - Acute epiglottitis without obstruction Code(s): J05.10 - Acute epiglottitis without obstruction Status: Acute (2) Sepsis: Qualifiers: Sepsis type: sepsis due to unspecified organism Sepsis acute organ dysfunction status: without acute organ dysfunction Qualified Code(s): A41.9 - Sepsis, unspecified organism Code(s): A41.9 - Sepsis, unspecified organism Status: Acute (3) Impacted cerumen of both ears: Code(s): H61.23 - Impacted cerumen, bilateral Status: Acute (4) Tympanic membrane perforation involving less than 50% of membrane area: Code(s): H72.90 - Unspecified perforation of tympanic membrane, unspecified ear Status: Acute Plan The patient meets sepsis criteria with tachycardia, leukocytosis and fever. Patient's imaging demonstrated epiglottitis and parapharyngeal lymphadenopathy with soft tissue swelling of the proximal esophagus. No definitive areas of inflammation or enhancement of the tonsils. The patient was admitted started on antibiotic therapy with Unasyn. He did receive Decadron in the ER which will be continued. The patient to be good to the ICU for close monitoring of his airway. Patient reports minimal improvement in his symptoms. He has been able to manage is secretions in his had stable airway overnight. He remains tachycardic despite 3 L of isotonic fluid administration and maintenance fluids. Blood cultures have been obtained and are pending. COVID flu and RSV PCR as well as strep PCR The patient had did miss his evening metoprolol. His blood pressures have been moderately elevated likely due to missing his antihypertensives. Patient bilateral cerumen impaction. Successful removal of cerumen impaction the right ear with eardrum visualized post cerumen removal demonstrating chronic appearing tympanic membrane perforation in the upper portion of the right tympanic memory. Patient still had persistent cerumen impaction in the left ear despite multiple attempts at clearing. Patient is morbidly obese and has crowded posterior oropharynx large neck circumference an clinical features contents concerning for possible obstructive sleep apnea. Patient is already attempting weight loss and is undergoing evaluation at the Bariat[facility] surgery program at [facility] for possible weight loss surgery. He is on metformin to help with weight loss. Would benefit from outpatient polysomnogram. MEDICAL DECISION MAKING NARRATIVE -Spoke with the ED provider in detail regarding patient's evaluation, workup and management -Patient seen and examined at bedside -Collaborated with patient's nurse at the bedside in detail and addressed all concerns -Labs, electrolytes, radiology, investigations and test results reviewed -ED/Consult/Nursing/Ancilliary notes on the chart reviewed and appreciated -Spoke with patient and all questions answered. Quality VTE Prophylaxis VTE prophylaxis: pharmacologic ordered (Lovenox 40 mg subQ q.12 hours (q.12 hours dosing due to the patient's BMI greater than 40)) Hospitalist MIPS Advance Care Plan I have confirmed that the patient's Advanced Care Plan is present, code status is documented, or surrogate decision maker is listed in patient medical record.: Yes Medication Reconciliation I have utilized all available resources to obtain, update and review the patients current medications (includes all prescriptions, OTC, herbals, cannabis, and nutritional supplements).: Yes
[2024-10-21 04:44] LABS: Hematocrit 39.8 % (42.0-52.0); Hemoglobin 13.7 g/dL (14.0-18.0); Immature Granulocyte Percent A 0.7 % (0-0.5); Lymphocytes Absolute Auto 1.06 K/mm3 (0.9-3.2); Mean Corpuscular HGB Conc 34.4 g/dl (32-36); Mean Corpuscular Hemoglobin 30.3 pg (26-34); Mean Corpuscular Volume 88.1 fl (80-100); Nucleated Red Blood Cells Absolute Auto 0.000 K/mm3 (0.0-0.012); Nucleated Red Blood Cells Perc 0.0 % (0.0-0.2); Platelet Count Result 204 k/mm3 (150-375); Red Blood Count 4.52 M/mm3 (4.6-6.20); White Blood Count 17.8 K/mm3 (4.5-10.0)
[2024-10-21 05:07] LABS: Anion Gap 11 mmol/L (4-12); Blood Urea Nitrogen 12 mg/dL (9-20); Calcium 9.4 mg/dL (8.4-10.2); Carbon Dioxide 23 mmol/L (22-30); Chloride 105 mmol/L (98-107); Estimated CRCL calculation 240 ml/min; Estimated Glomerular Filt Rate > 60; Glucose 155 mg/dL (65-110); Potassium 3.8 mmol/L (3.4-5.0); Sodium 139 mmol/L (137-145)
[2024-10-21 05:11] LABS: Procalcitonin 0.1 ng/mL
[2024-10-21] MEDS: SODIUM CHLORIDE 0.9% IV 1,000 ML 100 ML IV CONT (05:13)
[2024-10-21] MEDS: ENOXAPARIN 40 MG/0.4 ML SYRINGE SUB-Q ×2 (08:12→20:38)
[2024-10-21] MEDS: dexAMETHasone SOD PHOS INJ 10 MG/ML 1 ML VIAL 6 MG IV PUSH (08:12)
--- NOTE | 2024-10-21 08:37 | P.CONIN_ITS ---
Assessment and Plan Assessment and plan (1) Acute epiglottitis: Code(s): J05.10 - Acute epiglottitis without obstruction Status: Acute Assessment and Plan: 09/20: Patient presented with hoarseness in voice, feeling of something stuck in his throat, left-sided neck pain, mild difficulty swallowing. -CT scan of the neck and soft tissue showed slight prominent epiglottis, inflammatory changes are possible. Lymphadenopathy in the parapharyngeal areas. Soft tissue swelling in the area of proximal esophagus, further evaluation advised. No definitive enhancement in the areas of the tonsil -patient was started on Decadron, will increase Decadron 4 mg IV q.6 hours -09/20: Started on Unasyn -ENT was notified for a curbside consult, agreed with the plan of Decadron and Unasyn, if things worsen then consult ENT (2) Sepsis: Code(s): A41.9 - Sepsis, unspecified organism Status: Acute Assessment and Plan: WBC count 19.9 on admission, likely related to epiglottitis, sore throat -group a strep PCR was negative -influenza, RSV and COVID 19 PCR was negative -started on Unasyn (10/20) -10/20: Blood cultures have been obtained and pending Plan DVT prophylaxis: Enoxaparin Stress ulcer prophylaxis: Not indicated Nutrition: Will start full liquid diet Code Status: Full code Critical Care Time Spent: 47 minutes Due to a high probability of clinically significant, life threatening deterioration, the patient required my highest level of preparedness to intervene emergently and I personally spent this critical care time directly and personally managing the patient. This critical care time included obtaining a history; examining the patient; pulse oximetry; ordering and review of studies; arranging urgent treatment with development of a management plan; evaluation of patient's response to treatment; frequent reassessment; and discussions with other providers. It was exclusive of separately billable procedures and treating other patients and teaching time. Please see Assessment and Plan section and the rest of the note for further information on patient assessment and treatment This dictation may have been done utilizing a voice recognition system. Attempts have been made to correct errors. However, there may be uncorrected grammatical, spelling, and recognitions errors present. Online Merchandising Coordinator Consult Note Consult date: 10/21/24 Reason for consult: Sore throat, epiglottitis, hoarseness in voice HPI: Ed Siu is a 49 year old male with significant past medical history of hypertension, obesity presents to the ED on since 10/20/2024 with complains of sore throat and feels like his throat is swelling. He also reported difficulty swallowing and hoarseness in his voice, Per the ER notes. ForDenied any fevers or chills. Febrile in the ER to 100.3. Denies any chest pain, shortness of breath, abdominal pain, nausea, vomiting. In the ED WBC count was 19.9, normal BMP. Influenza, RSV, SARS-CoV-2 PCR was negative. Group a strep PCR was negative procalcitonin was 0.1. Chest x-ray with no acute cardiopulmonary pathology. CT scan of the soft tissue neck shows slight prominent epiglottis. Inflammatory changes are possible. Lymphadenopathy in the parapharyngeal areas. Soft tissue swelling in the area of proximal esophagus, further evaluation advised, no definite enhancement seen in the areas of the tonsils. LFTs are within normal limits patient was given Decadron 10 mg IV x1, started on Unasyn and transfer the ICU for further management Patient seen examined this morning, states he feels something stuck in his throat. Denies any difficulty swallowing, shortness of breath, drooling. Complains of pain on the left side of the neck. Blood pressure is elevated. Adequate urine output. No fevers Review of Systems 2 Review of Systems: All systems reviewed & are unremarkable except as noted in HPI and below PMFSH Past Medical History Medical History (Updated 10/21/24 @ 09:07 by Karla Bean DO) Morbid obesity with BMI of 50.0-59.9, adult Essential hypertension Surgical History Surgical History (Updated 10/21/24 @ 08:43 by Karla Bean DO) No history of previous surgery Family History Family History (Updated 10/21/24 @ 00:08 by Sindi Oleary RN) Mother Pancreatic cancer, Onset Age: 56 Father Salivary gland cancer Dementia Age older than 80 years Grandparent Alcohol abuse Grandparent Cerebrovascular accident Social History Social History (Updated 10/20/24 @ 18:07 by Natalie Cheney PA-C) Social History: The patient is single and lives with a roommate. He used to smoke a pack of cigarettes per day for about 5 years. He reports the drinking alcohol about once every other month. Denies illicit substance use. He works for [employer]. Code status: Full code Surrogate decision maker: Xiomara Tomlinson (Sister) Smoking packs per day: 1 Smoking cigarettes per day: 20.0 Years smoked: 5 Smoking pack-years: 5.00 Smoking status: Former smoker Tobacco type: cigarettes Alcohol intake: current Drinks per week: 1 Substance use: never Do You Feel Safe in your Home?: Yes Lack of Transportation: No Lack of Food: Never True Current Housing: I Have Housing Concerned About Future Housing: No Difficulty Paying Gas/Electric Bills: No Difficulty Paying for Meds: No Currently Unemployed: No Education: Associate Degree Difficulty w/ Childcare or Family Care: No Spiritual care concerns: No Meds Home Medications and Allergies Home Medications ?Medication ?Instructions ?Recorded ?Confirmed ?Type hydrochlorothiazide 25 mg tablet 25 mg PO DAILY 10/21/24 10/21/24 History lisinopril 40 mg tablet 40 mg PO HS 10/21/24 10/21/24 History metformin 500 mg tablet,extended 1,500 mg PO 1200 10/21/24 10/21/24 History release 24 hr metoprolol succinate 25 mg 25 mg PO HS 10/21/24 10/21/24 History tablet,extended release 24 hr Allergies Allergy/AdvReac Type Severity Reaction Status Date / Time No Known Allergies Allergy Mild Verified 10/21/24 00:16 Vital Signs Vital Signs - 24 hr 10/20/24 18:06 10/20/24 18:31 10/20/24 18:42 Temperature 98.0 F Pulse Rate 121 H 124 H 127 H Respiratory Rate 18 16 Blood Pressure 173/92 H 168/101 H Pulse Oximetry 99 96 Oxygen Delivery Room Air Room Air Fraction of Inspired Oxygen 10/20/24 18:42 10/20/24 19:01 10/20/24 19:30 Temperature Pulse Rate 133 H 138 H Respiratory Rate 18 17 Blood Pressure 165/101 H Pulse Oximetry 99 99 97 Oxygen Delivery Room Air Fraction of Inspired Oxygen 10/20/24 19:31 10/20/24 19:45 10/20/24 19:54 Temperature Pulse Rate 140 H 133 H 137 H Respiratory Rate 19 22 H 16 Blood Pressure 177/114 H 178/93 H Pulse Oximetry 95 97 96 Oxygen Delivery Fraction of Inspired Oxygen 10/20/24 19:55 10/20/24 20:00 10/20/24 20:01 Temperature 100.3 F H Pulse Rate 139 H 131 H 140 H Respiratory Rate 19 29 H Blood Pressure 178/93 H 151/107 H Pulse Oximetry 97 96 96 Oxygen Delivery Fraction of Inspired Oxygen 10/20/24 20:19 10/20/24 20:20 10/20/24 20:30 Temperature Pulse Rate 143 H Respiratory Rate 22 H Blood Pressure 133/114 H Pulse Oximetry 97 97 93 Oxygen Delivery Fraction of Inspired Oxygen 10/20/24 20:31 10/20/24 20:45 10/20/24 20:58 Temperature 99.6 F Pulse Rate 133 H Respiratory Rate Blood Pressure 151/91 H Pulse Oximetry 96 98 Oxygen Delivery Fraction of Inspired Oxygen 10/20/24 21:00 10/20/24 21:15 10/20/24 21:30 Temperature Pulse Rate 130 H 130 H 132 H Respiratory Rate 18 18 Blood Pressure Pulse Oximetry Oxygen Delivery Fraction of Inspired Oxygen 10/20/24 21:45 10/20/24 22:00 10/20/24 22:15 Temperature Pulse Rate 126 H 128 H 124 H Respiratory Rate 13 14 28 H Blood Pressure Pulse Oximetry 97 95 Oxygen Delivery Fraction of Inspired Oxygen 10/20/24 22:15 10/20/24 22:16 10/20/24 22:19 Temperature Pulse Rate 125 H 124 H 129 H Respiratory Rate Blood Pressure 184/162 H 156/90 H Pulse Oximetry 94 99 97 Oxygen Delivery Fraction of Inspired Oxygen 10/20/24 22:25 10/20/24 22:30 10/20/24 22:45 Temperature Pulse Rate 129 H 127 H 125 H Respiratory Rate 21 H 31 H Blood Pressure Pulse Oximetry 96 97 Oxygen Delivery Fraction of Inspired Oxygen 10/20/24 23:00 10/20/24 23:15 10/20/24 23:20 Temperature Pulse Rate 129 H 127 H Respiratory Rate 28 H 29 H 16 Blood Pressure 168/82 H Pulse Oximetry 98 96 97 Oxygen Delivery Fraction of Inspired Oxygen 10/20/24 23:38 10/21/24 00:00 10/21/24 00:00 Temperature 99.3 F Pulse Rate 125 H 130 H Respiratory Rate 25 H 20 Blood Pressure 166/79 H 149/74 H Pulse Oximetry 99 98 Oxygen Delivery Room Air Fraction of Inspired Oxygen 10/21/24 00:00 10/21/24 01:21 10/21/24 01:23 Temperature Pulse Rate 127 H 115 H 112 H Respiratory Rate 20 20 Blood Pressure Pulse Oximetry 99 Oxygen Delivery Room Air Fraction of Inspired Oxygen 10/21/24 02:00 10/21/24 02:00 10/21/24 04:00 Temperature Pulse Rate 118 H 118 H Respiratory Rate 15 Blood Pressure 144/85 H Pulse Oximetry 96 Oxygen Delivery Room Air Fraction of Inspired Oxygen 10/21/24 04:00 10/21/24 04:00 10/21/24 06:00 Temperature 98.8 F Pulse Rate 113 H 108 H 103 H Respiratory Rate 15 Blood Pressure 129/62 Pulse Oximetry 96 Oxygen Delivery Fraction of Inspired Oxygen 10/21/24 06:00 10/21/24 07:30 10/21/24 07:30 Temperature 101.0 F H Pulse Rate 121 H 100 100 Respiratory Rate 22 H 20 20 Blood Pressure 118/81 Pulse Oximetry 100 97 Oxygen Delivery Room Air Fraction of Inspired Oxygen 10/21/24 07:40 10/21/24 07:47 Temperature 97.7 F Pulse Rate 114 H 124 H Respiratory Rate 20 20 Blood Pressure 151/91 H Pulse Oximetry 94 Oxygen Delivery Fraction of Inspired Oxygen Exam 2 Narrative: General: Pleasant gentleman in no acute distress HEENT:? Pupils equal and reactive, sclerae ischemia, no erythema, no swelling of the tonsils, Neck:? Left sided lymphadenopathy with tenderness. No stridor Respiratory:? Clear to auscultation bilaterally, no wheezing Cardiac:? Sinus tachycardia Abdomen:? Soft, nontender, nondistended, obese, normoactive bowel sounds Extremities:? No edema, palpable pedal pulses Neuro:? Patient is awake, alert, oriented, nonfocal Skin:? No skin lesions noted Psych:? Normal mentation and affect Results Labs 10/21/24 04:28 10/21/24 04:28 Labs: Short CBC 10/20/24 10/21/24 Range/Units 18:51 04:28 WBC 19.9 H 17.8 H (4.5-10.0) K/mm3 Hgb 15.1 13.7 L (14.0-18.0) g/dL Hct 45.2 39.8 L (42.0-52.0) % Plt Count 239 204 (150-375) k/mm3 [facility] 10/20/24 10/21/24 18:31 04:28 Sodium 140 139 Potassium 3.8 3.8 Chloride 106 105 Carbon Dioxide 23 23 BUN 22 H 12 D Creatinine 0.90 0.58 L Glucose 131 H 155 H Calcium 9.4 9.4 Liver Function 10/20/24 Range/Units 18:31 Total Bilirubin 0.3 (0.2-1.3) mg/dL AST 43 (17-59) U/L ALT 60 H (6-50) U/L Alkaline Phosphatase 55 (38-126) U/L Albumin 4.3 (3.5-5.1) g/dL Quality VTE Prophylaxis VTE prophylaxis: pharmacologic ordered Hospitalist [facility] Advance Care Plan I have confirmed that the patient's Advanced Care Plan is present, code status is documented, or surrogate decision maker is listed in patient medical record.: Yes Medication Reconciliation I have utilized all available resources to obtain, update and review the patients current medications (includes all prescriptions, OTC, herbals, cannabis, and nutritional supplements).: Yes
[2024-10-21] MEDS: METOPROLOL SUCCINATE EXT REL 25 MG TABCR PO (10:52)
[2024-10-21] MEDS: AMPICILLIN SODIUM/SULBACTAM 3 GM in SODIUM CHLORIDE 0.9% IV 100 ML IVPB (10:54)
[2024-10-21] MEDS: dexAMETHasone SOD PHOS INJ 10 MG/ML 1 ML VIAL 4 MG IV PUSH ×2 (14:46→20:38)
[2024-10-22] VITALS (26 sets, daily range): BP systolic 122–156; BP diastolic 56–89; PULSE 67–98; RESP 14–22; TEMP 36.7–37.2; O2SAT 94–98
[2024-10-22] MEDS: dexAMETHasone SOD PHOS INJ 10 MG/ML 1 ML VIAL 4 MG IV PUSH ×4 (01:59→21:37)
[2024-10-22] MEDS: ALBUTEROL SULFATE NEB 2.5 MG/3 ML INH INHALATION ×4 (02:26→22:20)
[2024-10-22] MEDS: AMPICILLIN SODIUM/SULBACTAM 3 GM in SODIUM CHLORIDE 0.9% IV 100 ML 200 ML IVPB ×4 (03:04→21:43)
[2024-10-22 04:49] LABS: Hematocrit 40.4 % (42.0-52.0); Hemoglobin 13.4 g/dL (14.0-18.0); Immature Granulocyte Percent A 0.9 % (0-0.5); Lymphocytes Absolute Auto 0.90 K/mm3 (0.9-3.2); Mean Corpuscular HGB Conc 33.2 g/dl (32-36); Mean Corpuscular Hemoglobin 30.3 pg (26-34); Mean Corpuscular Volume 91.4 fl (80-100); Nucleated Red Blood Cells Absolute Auto 0.000 K/mm3 (0.0-0.012); Nucleated Red Blood Cells Perc 0.0 % (0.0-0.2); Platelet Count Result 203 k/mm3 (150-375); Red Blood Count 4.42 M/mm3 (4.6-6.20); White Blood Count 12.9 K/mm3 (4.5-10.0)
[2024-10-22 05:02] LABS: Alanine Aminotransferase 45 U/L (6-50); Albumin Level 4.0 g/dL (3.5-5.1); Alkaline Phosphatase 47 U/L (38-126); Anion Gap 10 mmol/L (4-12); Aspartate Amino Transferase 29 U/L (17-59); Bilirubin,Total 0.7 mg/dL (0.2-1.3); Blood Urea Nitrogen 11 mg/dL (9-20); Calcium 9.4 mg/dL (8.4-10.2); Carbon Dioxide 24 mmol/L (22-30); Chloride 105 mmol/L (98-107); Estimated CRCL calculation 243 ml/min; Estimated Glomerular Filt Rate > 60; Glucose 182 mg/dL (65-110); Magnesium 2.0 mg/dL (1.6-2.3); Potassium 3.9 mmol/L (3.4-5.0); Sodium 139 mmol/L (137-145); Total Protein 7.6 g/dL (6.3-8.2)
[2024-10-22] MEDS: METOPROLOL SUCCINATE EXT REL 25 MG TABCR PO (08:42)
[2024-10-22] MEDS: ENOXAPARIN 40 MG/0.4 ML SYRINGE SUB-Q (08:42)
--- NOTE | 2024-10-22 14:30 | PM.IMPN ---
Progress Note: A&P Assessment and Plan (1) Acute epiglottitis: Qualifiers: Airway obstruction: without obstruction Qualified Code(s): J05.10 - Acute epiglottitis without obstruction Code(s): J05.10 - Acute epiglottitis without obstruction Status: Acute (2) Sepsis: Qualifiers: Sepsis type: sepsis due to unspecified organism Sepsis acute organ dysfunction status: without acute organ dysfunction Qualified Code(s): A41.9 - Sepsis, unspecified organism Code(s): A41.9 - Sepsis, unspecified organism Status: Acute (3) Impacted cerumen of both ears: Code(s): H61.23 - Impacted cerumen, bilateral Status: Acute (4) Tympanic membrane perforation involving less than 50% of membrane area: Code(s): H72.90 - Unspecified perforation of tympanic membrane, unspecified ear Status: Acute Plan Sepsis, resolving From Acute Epiglottitis Patient had difficulty swallowing pills this morning continue Unasyn and Decadron monitor Bilateral cerumen impaction s/p removal of cerumen from right ear Patient will continue f/u with ENT Morbid obesity patient follows bariatric surgery outpatient encouraged to continue DVT prophylaxis on Sq Lovenox Subjective Date/time seen: 10/22/24 14:30 Interval history: Comfortable at bedside Patient had problems swallong pill this morning Review of Systems Review of Systems: 12 systems were reviewed with pertinent positives and negatives per HPI. Except as documented in the HPI, all other systems were reviewed and are negative. All systems reviewed & are unremarkable except as noted in HPI and below Exam Narrative: General: Pleasant gentleman in no acute distress HEENT:? Pupils equal and reactive, sclerae ischemia, no erythema, no swelling of the tonsils, Neck:? Left sided lymphadenopathy with tenderness. No stridor Respiratory:? Clear to auscultation bilaterally, no wheezing Cardiac:? Sinus tachycardia Abdomen:? Soft, nontender, nondistended, obese, normoactive bowel sounds Extremities:? No edema, palpable pedal pulses Neuro:? Patient is awake, alert, oriented, nonfocal Skin:? No skin lesions noted Psych:? Normal mentation and affect Const: Other: Is no acute distress, morbidly obese, appears stated age HENMT: Other: Mucous membranes are tacky, mild erythema left posterior oropharynx, posterior pharynx markedly crowded, no trismus, no drooling, fair dentition, patient had bilateral cerumen impaction canal after gentle flushing of the years with hypoxia rate solution was able to visualize the patient's right tympanic membrane it. I have chronic perforation, multiple attempts were made to remove the cerumen from the patient's left ear without success still was not able to visualize the patient's tympanic membrane Eyes: Other: No scleral icterus, no conjunctival pallor Neck: Other: Left anterior cervical lymphadenopathy tender to palpation extending down the entire anterior cervical chain, no posterior irregular lymphadenopathy Resp: Other: Clear to auscultation bilaterally, no increased work of breathing, no stridor, no wheezing Cardio: Other: Sinus tachycardia, 2+ pulses bilateral upper and lower extremities, no murmur GI: Other: Obese, soft, nontender, positive bowel sounds Skin: Other: No jaundice, no pallor Neuro: Other: Alert oriented, speech is clear, no facial asymmetry, no localizing neurologic deficits noted during conversation Extrem: Other: No clubbing, cyanosis or edema Psych: Other: Appropriate mood and affect, pleasant and cooperative, judgment and insight intact Objective Data Vital Signs Vital Signs: Vital Signs - 24 hr 10/21/24 16:00 10/21/24 16:00 10/21/24 18:00 Temperature 97.5 F L Pulse Rate 105 H 96 102 H Respiratory Rate 21 H Blood Pressure 147/88 H Pulse Oximetry 98 Oxygen Delivery Fraction of Inspired Oxygen 10/21/24 20:00 10/21/24 20:00 10/21/24 20:00 Temperature 98.1 F Pulse Rate 87 98 Respiratory Rate 19 Blood Pressure 136/88 Pulse Oximetry 95 Oxygen Delivery Room Air Fraction of Inspired Oxygen 10/21/24 20:04 10/21/24 20:04 10/21/24 20:11 Temperature Pulse Rate 98 98 93 Respiratory Rate 16 16 18 Blood Pressure Pulse Oximetry 97 Oxygen Delivery Room Air Fraction of Inspired Oxygen 21 10/21/24 22:00 10/22/24 00:00 10/22/24 00:00 Temperature 98.2 F Pulse Rate 85 76 Respiratory Rate 17 Blood Pressure 122/56 L Pulse Oximetry 97 Oxygen Delivery Room Air Fraction of Inspired Oxygen 10/22/24 00:00 10/22/24 02:00 10/22/24 02:26 Temperature Pulse Rate 76 90 83 Respiratory Rate 22 H Blood Pressure Pulse Oximetry Oxygen Delivery Fraction of Inspired Oxygen 10/22/24 04:00 10/22/24 04:00 10/22/24 04:00 Temperature 98.3 F Pulse Rate 85 78 Respiratory Rate 16 Blood Pressure 137/80 Pulse Oximetry 96 Oxygen Delivery Room Air Fraction of Inspired Oxygen 10/22/24 06:00 10/22/24 08:00 10/22/24 08:00 Temperature Pulse Rate 72 82 Respiratory Rate Blood Pressure Pulse Oximetry Oxygen Delivery Room Air Fraction of Inspired Oxygen 10/22/24 08:10 10/22/24 08:42 10/22/24 09:06 Temperature Pulse Rate 82 93 Respiratory Rate 19 Blood Pressure 144/79 H Pulse Oximetry 98 Oxygen Delivery Room Air Fraction of Inspired Oxygen 10/22/24 09:06 10/22/24 09:16 10/22/24 09:55 Temperature 98.2 F Pulse Rate 84 89 Respiratory Rate 17 18 Blood Pressure Pulse Oximetry Oxygen Delivery Fraction of Inspired Oxygen 10/22/24 10:00 10/22/24 11:56 10/22/24 12:00 Temperature Pulse Rate 93 98 Respiratory Rate Blood Pressure Pulse Oximetry Oxygen Delivery Room Air Fraction of Inspired Oxygen 10/22/24 12:32 10/22/24 14:00 Temperature 98.1 F Pulse Rate 96 67 Respiratory Rate 20 Blood Pressure 150/58 H Pulse Oximetry 96 Oxygen Delivery Fraction of Inspired Oxygen Intake/Output Intake/Output: Intake & Output 10/19/24 10/20/24 10/21/24 10/22/24 23:59 23:59 23:59 23:59 Intake Total 1100 3938.3 1198 Output Total 2250 Balance 1100 1688.3 1198 Meds/Results Medications: Active Medications Generic Name Dose Route Start Last Admin Trade Name Freq PRN Reason Stop Dose Admin Albuterol 2.5 mg 10/21/24 02:00 10/22/24 09:06 Albuterol Sulfate Neb 2.5 Mg/3 Ml Inh INHALATION 2.5 mg Q6HRT [place] Administration Dexamethasone Sodium Phosphate 4 mg 10/21/24 14:00 10/22/24 08:41 Dexamethasone Sod Phos Inj 10 Mg/Ml 1 Ml Vial IV PUSH 10/24/24 13:59 4 mg Q6H [place] Administration Dextrose 12.5 gm 10/21/24 04:19 Dextrose 50% 25 Gm/50 Ml Syringe IV PUSH PRN PRN Hypoglycemia Protocol Enoxaparin Sodium 40 mg 10/21/24 09:00 10/22/24 08:42 Enoxaparin 40 Mg/0.4 Ml Syringe SUB-Q 40 mg Q12HR [place] Administration Glucagon 1 mg 10/21/24 04:19 Glucagon For Inj 1 Mg Vial IM PRN PRN Hypoglycemia Protocol Glucose 15 gm 10/21/24 04:19 Glucose Oral Gel 15 Gm Of Glucse In 37.5 Gm Tube PO PRN PRN Hypoglycemia Protocol Ampicillin Sodium/Sulbactam 100 mls @ 200 mls/hr 10/21/24 04:00 10/22/24 08:42 Sodium 3 gm/ Sodium Chloride IVPB 200 mls/hr Q6H [place] Administration Dextrose 1,000 mls @ 100 mls/hr 10/21/24 04:19 Dextrose 5% 1,000 Ml IVPB PRN PRN Hypoglycemia Protocol Insulin Aspart 3 - 6 units 10/22/24 12:00 10/22/24 11:44 Insulin Aspart (*Bkc) 100 Units/Ml SUB-Q Not Given TIDWM [place] Protocol Lisinopril 40 mg 10/21/24 09:00 10/22/24 08:42 Lisinopril 20 Mg Tablet PO 40 mg QAM [place] Administration Metoprolol Succinate 25 mg 10/21/24 09:00 10/22/24 08:42 Metoprolol Succinate Ext Rel 25 Mg Tabcr PO 25 mg QAM [place] Administration Radiology Results: ITS Impressions Chest X-Ray 10/20/24 18:43 IMPRESSION: No acute cardiopulmonary pathology. Soft Tissue Neck CT 10/20/24 20:17 IMPRESSION: 1. Slightly prominent epiglottis. Inflammatory changes are possible. 2. Lymphadenopathy in the parapharyngeal areas. 3. Soft tissue swelling in the area of the proximal esophagus. Further evaluation advised. 4. No definite enhancement seen in the area of the tonsils Labs Labs: Laboratory Results - last 24 hr 10/21/24 10/21/24 10/22/24 15:49 20:39 04:22 WBC 12.9 H RBC 4.42 L Hgb 13.4 L Hct 40.4 L MCV 91.4 MCH 30.3 MCHC 33.2 RDW 12.9 Plt Count 203 MPV 10.5 H Immature Gran % (Auto) 0.9 H Neut % (Auto) 86.2 H Lymph % (Auto) 7.0 L [place] % (Auto) 5.7 Eos % (Auto) 0.0 Baso % (Auto) 0.2 Lymph # (Auto) 0.90 [place] # (Auto) 0.7 H Eos # (Auto) 0.0 Baso # (Auto) 0.0 Abs Immat Gran (auto) 0.12 H Absolute Neuts (auto) 11.1 H Absolute Nucleated RBC 0.000 Nucleated RBC % 0.0 Sodium 139 Potassium 3.9 Chloride 105 Carbon Dioxide 24 Anion Gap 10 BUN 11 Creatinine 0.57 L Estim Creat Clear Calc 243 Estimated GFR > 60 Glucose 182 H POC Capillary Glucose 154 H 163 H Calcium 9.4 Phosphorus 2.8 Magnesium 2.0 Total Bilirubin 0.7 AST 29 ALT 45 Alkaline Phosphatase 47 Total Protein 7.6 Albumin 4.0 10/22/24 10/22/24 06:31 11:28 WBC RBC Hgb Hct MCV MCH MCHC RDW Plt Count MPV Immature Gran % (Auto) Neut % (Auto) Lymph % (Auto) [place] % (Auto) Eos % (Auto) Baso % (Auto) Lymph # (Auto) [place] # (Auto) Eos # (Auto) Baso # (Auto) Abs Immat Gran (auto) Absolute Neuts (auto) Absolute Nucleated RBC Nucleated RBC % Sodium Potassium Chloride Carbon Dioxide Anion Gap BUN Creatinine Estim Creat Clear Calc Estimated GFR Glucose POC Capillary Glucose 155 H 136 H Calcium Phosphorus Magnesium Total Bilirubin AST ALT Alkaline Phosphatase Total Protein Albumin Quality VTE Prophylaxis VTE prophylaxis: pharmacologic ordered (Lovenox 40 mg subQ q.12 hours (q.12 hours dosing due to the patient's BMI greater than 40))
--- NOTE | 2024-10-22 18:17 | PC.NURSE ---
This patient, Ed Siu, was transferred to [facility] on 10/22/24 at 1817. Personal belongings sent with patient. Report given to MARJORIE Currie. Appropriate documentation sent with patient.
[2024-10-23] VITALS (17 sets, daily range): BP systolic 129–145; BP diastolic 62–95; PULSE 58–96; RESP 16–22; TEMP 36.5–36.8; O2SAT 97–100
[2024-10-23] MEDS: AMPICILLIN SODIUM/SULBACTAM 3 GM in SODIUM CHLORIDE 0.9% IV 100 ML 200 ML IVPB ×2 (03:09→09:38)
[2024-10-23] MEDS: dexAMETHasone SOD PHOS INJ 10 MG/ML 1 ML VIAL 4 MG IV PUSH ×2 (03:09→09:07)
[2024-10-23] MEDS: ALBUTEROL SULFATE NEB 2.5 MG/3 ML INH INHALATION ×2 (08:11→14:45)
[2024-10-23] MEDS: METOPROLOL SUCCINATE EXT REL 25 MG TABCR PO (09:06)
--- NOTE | 2024-10-23 15:36 | PM.DS ---
DS: Admitting Diagnosis Discharge Date 10/23/24 Admitting Diagnosis Sore throat, feel like throat is closing DS: Discharge Diagnosis Discharge Diagnosis (1) Acute epiglottitis: Qualifiers: Airway obstruction: without obstruction Qualified Code(s): J05.10 - Acute epiglottitis without obstruction Code(s): J05.10 - Acute epiglottitis without obstruction Status: Acute DS: Summary Hospital Course Hospital Course: 49-year-old male with a past medical history of essential hypertension and morbid obesity class 3 who presented to the ER with sore throat that started yesterday with worsening symptoms feeling as if his throat is going to close. He reports 2 days of sore throat and postnasal drip. He has had progressive hoarseness of voice. He feels like there is something stuck in his throat. He denies any difficulty managing secretions but is extremely painful to swallow. He denies having any fevers or chills but was noted to be febrile in the ER with a T-max of 100.3?. He was significantly tachycardic but he denied sensation of palpitations or chest pain. He denied actual shortness of breath for reported that the sensation of fullness in his throat made tumor free they would not be able to breathe. He reports pain in the left lateral neck on palpation. He has had decreased appetite. He denies any nausea or vomiting. He reports that he is coughing but his cough is more due to trying to clear the sensation of fullness in his throat. He has had a prior history of tonsillitis few years back. On exam patient did have bilateral cerumen impaction. He states that he subtle a ear nose throat doctor couple weeks ago for unrelated cyst in his neck that sounds like it was a superficial inclusion cyst that was drained. He stated that he had the cerumen impaction noted by the ear nose and throat doctor in said that the patient needed to have his ears cleaned out but he did not treated years. He reports that for several months he has been having the sensation of popping in the left ear when he chews or moves his jaw or tries to clear his throat. He reports that he is on metformin for weight loss and does not have diabetes. He reports that his last A1c was below the cutoff for pre diabetes is well. Patient was managed initially in the ICU for sepsis and and acute epiglottitis, was started on Unasyn and Decadron. Fortunately patient was not intubated and difficulty breathing and dysphagia resolved. Cultures negative. Patient discharged on 18 days una of Augmentin to complete 21 days. F/u with PCP in 3-5 days Time Spent with Patient Time attestation: Total time spent providing and/or coordinating discharge services: DS: Data Data Completed and Pending Labs on day of discharge: Labs from last 24 hours 10/23/24 10/23/24 10/22/24 11:13 07:31 20:22 POC Capillary Glucose 120 H 134 H 146 H 10/22/24 16:06 POC Capillary Glucose 117 H Discharge Plan Discharge Attending physician on discharge: Ayesha Ferraro Consulting providers: Gomez Murray Discharging Clinician: Ayesha Ferraro Anticipated Discharge Date/Time: 10/23/24 15:28 Patient Disposition: Home Activity: as tolerated Diet: as tolerated and regular Patient Instructions: Antibiotic Form Patient Language: Romansh Stand Alone Forms: General Discharge Information Follow-up/Referrals: Saw,Sharon Gibson MD [Primary Care Provider] - (F/u with PCP in 3-5 days ) Discharge Medications: New amoxicillin-pot clavulanate 875-125 mg tablet 1 tablet PO Q12H 18 Days Qty: 36 0RF dexamethasone 2 mg tablet 2 mg PO .see instructions Qty: 21 0RF Rx Instructions: Give 4mg bid x 3 days, then 2mg bid x 3 days then 2mg daily x 3 days, then stop Continued hydrochlorothiazide 25 mg tablet 25 mg PO DAILY lisinopril 40 mg tablet 40 mg PO HS metformin 500 mg tablet extended release 24 hr 1,500 mg PO 1200 metoprolol succinate 25 mg tablet extended release 24 hr 25 mg PO HS Date of admission: 10/21/24 09:15 Primary Care Provider: SawSharon Admitting Provider: Karla Bean Attending physician on admission: Ayesha Ferraro Condition: Serious
== END 2024-10-23 16:24 | disposition home or self-care (01) | DRG 872 ==
LOC: ANHED 21:17 → ANHICU 22:50 → ANHIMU 10-22 18:24
PROVIDERS: Internal Medicine; Physician Assistant; Admitting Provider Internal Medicine; Emergency Provider Emergency Medicine; PCP Student in an Organized Health Care Education/Training Program; Visit Provider Internal Medicine
DX: A41.9 Sepsis, unspecified organism (principal); J05.10 Acute epiglottitis without obstruction; Z68.43 Body mass index [BMI] 50.0-59.9, adult; H61.23 Impacted cerumen, bilateral; H72.91 Unspecified perforation of tympanic membrane, right ear; E66.813 Obesity, class 3; I10 Essential (primary) hypertension; Z20.822 Contact with and (suspected) exposure to COVID-19; Z87.891 Personal history of nicotine dependence
CPT/HCPCS: 36415; 70491; 71045; 80048; 80053; 82948; 83735; 84100; 84145; 85025; 87040; 87637; 87641; 87651; 93005; 94640; 94762; 96361; 96365; 96375; 99285; A9270; J0295; J1100; J1650; J7030; J7120; Q9967

== ENCOUNTER 2025-01-21 10:03 | Emergency (ER) | payer BC, SELFPAY ==
[2025-01-21 10:12] VITALS: BP 132/69; PULSE 102; RESP 18; TEMP 36.6; O2SAT 100
--- NOTE | 2025-01-21 10:28 | ED.SKABFB ---
HPI - Skin/Abscess/Foreign Bdy General Chief complaint: Skin/Abscess/Foreign Body Stated complaint: Bump On Upper Back Time Seen by Provider: 01/21/25 10:28 Source: patient and RN notes reviewed Mode of arrival: ambulatory Limitations: no limitations History of Present Illness HPI narrative: 49-year-old male presents with concern for an abscess on his back. He reports he knows that a couple days ago. Reports it is painful. He denies fever, aches, chills, sweats. Denies drainage. MD complaint: abscess/boil Related Data Home Medications ?Medication ?Instructions ?Recorded ?Confirmed ?Last Taken ?Type hydrochlorothiazide 25 mg tablet 25 mg PO DAILY 10/21/24 10/21/24 10/20/24 History lisinopril 40 mg tablet 40 mg PO HS 10/21/24 10/21/24 10/19/24 History metformin 500 mg tablet,extended 1,500 mg PO 1200 10/21/24 10/21/24 10/20/24 History release 24 hr metoprolol succinate 25 mg 25 mg PO HS 10/21/24 10/21/24 10/19/24 History tablet,extended release 24 hr Allergies Allergy/AdvReac Type Severity Reaction Status Date / Time No Known Allergies Allergy Mild Verified 01/21/25 10:11 Review of Systems Review of Systems: CONSTITUTIONAL: Denies malaise, chills, sweats, or fever. EYES: Denies redness, or discharge. RESPIRATORY: Denies cough or dyspnea. SKIN: Reports painful bump on his upper back MUSCULOSKELETAL: Denies joint pain or myalgia. All systems reviewed & are unremarkable except as noted in HPI and below PMFSH Past Medical History Medical History (Updated 01/21/25 @ 10:36 by Anna Boyce NP) Morbid obesity with BMI of 50.0-59.9, adult Essential hypertension Surgical History Surgical History No history of previous surgery Family History Family History (Updated 10/21/24 @ 08:45 by Karla Bean DO) Mother Pancreatic cancer, Onset Age: 56 Father Salivary gland cancer Dementia Age older than 80 years Grandparent Alcohol abuse Grandparent Cerebrovascular accident Social History Social History (Updated 10/21/24 @ 08:47 by Karla Bean DO) Social History: The patient is single and lives with a roommate. He used to smoke a pack of cigarettes per day for about 5 years. He reports the drinking alcohol about once every other month. Denies illicit substance use. He works for [employer]. Code status: Full code Surrogate decision maker: Xiomara Tomlinson (Sister) Smoking packs per day: 1 Smoking cigarettes per day: 20.0 Years smoked: 5 Smoking pack-years: 5.00 Smoking status: Former smoker Tobacco type: cigarettes Alcohol intake: current Drinks per week: 1 Substance use: never Do You Feel Safe in your Home?: Yes Lack of Transportation: No Lack of Food: Never True Current Housing: I Have Housing Concerned About Future Housing: No Difficulty Paying Gas/Electric Bills: No Difficulty Paying for Meds: No Currently Unemployed: No Education: Associate Degree Difficulty w/ Childcare or Family Care: No Spiritual care concerns: No Comments At time of signature, agree with nursing past medical, surgical, social and family history. There is no relevant family history pertinent to the presenting complaint Exam Narrative: GENERAL: Well-appearing, well-nourished, and in no acute distress. HEAD: Normocephalic, atraumatic. EYES: PERRLA, conjunctivae clear, and EOMI. ENT: Mucous membranes moist. Oropharynx without edema, erythema or lesions. NECK: Supple. No lymphadenopathy CHEST: Clear to auscultation. No respiratory distress. HEART: Regular rate and rhythm. SKIN: Warm, dry. Approximately 2 cm fluctuant raised area noted on the left upper back without surrounding induration, mild erythema NEURO: Alert and oriented x3. PSYCH: Normal mood and affect Course Course Emergency Course: Patient is aware of diagnosis, understands and agrees to treatment plan. Anticipatory guidance given. Patient agrees to follow-up as directed and is aware of reasons to seek care at the emergency department. Portions of this record may have been created with voice recognition software Level of Care: Express Care Visit Vital Signs Vital signs: Vital Signs Temperature 97.9 F 01/21/25 10:12 Pulse Rate 102 H 01/21/25 10:12 Respiratory Rate 18 01/21/25 10:12 Blood Pressure 132/69 01/21/25 10:12 Pulse Oximetry 100 01/21/25 10:12 Oxygen Delivery Room Air 01/21/25 10:12 Temperature 97.9 F 10/09/25 10:12 Pulse Rate 102 H 01/21/25 10:12 Respiratory Rate 18 01/21/25 10:12 Blood Pressure 132/69 01/21/25 10:12 Pulse Oximetry 100 01/21/25 10:12 Oxygen Delivery Room Air 01/21/25 10:12 Reviewed. Procedures Abscess I/D back: Date of Incision: 01/21/25 Time of Incision: 10:33 Side (if applicable): left Local Anesthetic: lidocaine 1% Amount of anesthesia used (mL): 2 Technique: incised with #11 blade Amount of fluid expressed (mL): 4 Irrigation: Yes Packing used?: none I&D Results: Other (Sebaceous material) MDM - Skin/Abscess/Foreign Bdy MDM Narrative Medical decision making narrative: I evaluated this patient in the [facility]. History is obtained from patient who is an independent historian and physical exam was performed.? Available medical records were reviewed. ? Exam findings and relevant testing show no acute concerns or changes; patient is non-toxic appearing and is in no distress. ? Differential diagnosis and treatment plan were discussed with the patient. Patient agrees with discussion and after shared medical decision making agrees with plan of care. All questions were answered to the patient's satisfaction. Patient is appropriate for outpatient treatment and follow-up. Critical Care Time Critical Care Time Critical Care Time: No Discharge Plan Discharge Clinical Impression: Abscess Patient Disposition: Home Condition: Stable Instructions: Antibiotic Form, Abscess Incision and Drainage (DC) Additional Instructions: You have had an abscess drained at [facility]. You may shower - let the soapy water clean your wound, do not scrub it. Keep your wound covered to prevent transmission of infection to other people. Follow up with your primary care physician or in the Emergency Department in 2-3 days for a wound check. Go to the Emergency Department immediately if you develop any of the following symptoms: Fevers, Increased redness or swelling around where your abscess was, Increased pain, or Generalized weakness or vomiting Please see your doctor in 2 days for wound recheck. Please Keep the wound covered and dry. Once a day: wash the wound with soap/water, apply bacitracin or neosporin and re-cover the wound. If you have any worsening of symptoms, including severe pain/swelling/numbness/changes in sensation/weakness, redness which expands more than it is right now or any other concerns please return to the ED immediately. Patient Language: Trinidadian Prescriptions: New cephalexin 500 mg capsule 500 mg PO QID 10 Days Qty: 40 0RF No Action hydrochlorothiazide 25 mg tablet 25 mg PO DAILY lisinopril 40 mg tablet 40 mg PO HS metformin 500 mg tablet extended release 24 hr 1,500 mg PO 1200 metoprolol succinate 25 mg tablet extended release 24 hr 25 mg PO HS Follow-up/Referrals: Brian,Sharon Gibson MD [Primary Care Provider, Unknown] Time of Disposition: 10:50
== END 2025-01-21 10:57 | disposition home or self-care (01) ==
PROVIDERS: Emergency Provider Nurse Practitioner; PCP Student in an Organized Health Care Education/Training Program
DX: L02.212 Cutaneous abscess of back [any part, except buttock and flank] (principal); I10 Essential (primary) hypertension; E66.01 Morbid (severe) obesity due to excess calories; Z68.42 Body mass index [BMI] 45.0-49.9, adult; Z87.891 Personal history of nicotine dependence
CPT/HCPCS: 10060; 87070; 87075; 87205; 99213; G0463; J2003